=== PATIENT | female | born 1940 | race Caucasian/White ===

== ENCOUNTER 2019-05-22 09:44 | Inpatient (IN) | payer MEDICARE ==
[~2019-05-22] VITALS: Ht 175.3 cm; Wt 96.4 kg
[2019-05-22] VITALS (7 sets, daily range): BP systolic 127–158; BP diastolic 56–69
[2019-05-22] MEDS ORDERED: SODIUM CHLORIDE 0.9% 1000ML 1,000 ML IV STA ×2 (09:46→11:28)
--- OUTSIDE RECORDS SUMMARY | 2019-05-22 09:46 | XMS REPORT ---
Author Author [facility] Address Unknown Phone Unavailable Care Team Providers Care Fondant Machine Operator Name Role Phone BRAYDON NOLAND CHRISTINA Unavailable Unavailable NIK HERRERA Unavailable Unavailable STEPHEN TAVARES Unavailable Unavailable Problems This patient has no known problems. Allergies, Adverse Reactions, Alerts This patient has no known allergies or adverse reactions. Medications This patient has no known medications. Results Test Description Test Time Test Comments Text Results Atomic Results Result Comments AFB CULTURE + SMEAR 2018-01-02 22:21:00 CULTURE (BEAKER) (test yznb=5176) No acid-fast bacilli isolated in 42 days AFB SMEAR (BEAKER) (test ytoe=812) No acid fast bacilli seen CBC W/PLT COUNT & AUTO [id number] 16:54:00* Test Item Value Reference Range Comments WHITE BLOOD CELL COUNT (BEAKER) (test jtzf=935) 52.3 K/ L 3.5-10.5 RED BLOOD CELL COUNT (BEAKER) (test ooft=573) 2.25 M/ L 3.93-5.22 HEMOGLOBIN (BEAKER) (test zhkh=681) 8.0 GM/DL 11.2-15.7 HEMATOCRIT (BEAKER) (test lfgm=444) 26.1 % 34.1-44.9 MEAN CORPUSCULAR VOLUME (BEAKER) (test wwtf=050) 116.0 fL 79.4-94.8 MEAN CORPUSCULAR HEMOGLOBIN (BEAKER) (test axjm=958) 35.6 pg 25.6-32.2 MEAN CORPUSCULAR HEMOGLOBIN CONC (BEAKER) (test hnlz=771) 30.7 GM/DL 32.2-35.5 RED CELL DISTRIBUTION WIDTH (BEAKER) (test htkk=571) 23.8 % 11.7-14.4 PLATELET COUNT (BEAKER) (test nxui=637) 109 K/CU MM 150-450 MEAN PLATELET VOLUME (BEAKER) (test jyni=543) 11.9 fL 9.4-12.3 NUCLEATED RED BLOOD CELLS (BEAKER) (test vgxo=862) 0 /100 WBC 0-0 NEUTROPHILS RELATIVE PERCENT (BEAKER) (test udal=863) 9 % LYMPHOCYTES RELATIVE PERCENT (BEAKER) (test aecy=756) 76 % MONOCYTES RELATIVE PERCENT (BEAKER) (test muyz=447) 15 % EOSINOPHILS RELATIVE PERCENT (BEAKER) (test xhvs=573) 0 % BASOPHILS RELATIVE PERCENT (BEAKER) (test vgmd=450) 0 % NEUTROPHILS ABSOLUTE COUNT (BEAKER) (test lnyh=531) 4.47 K/ L 1.56-6.13 LYMPHOCYTES ABSOLUTE COUNT (BEAKER) (test vtyo=226) 39.74 K/ L 1.18-3.74 MONOCYTES ABSOLUTE COUNT (BEAKER) (test txgx=019) 7.61 K/ L 0.24-0.36 EOSINOPHILS ABSOLUTE COUNT (BEAKER) (test xurg=569) 0.03 K/ L 0.04-0.36 BASOPHILS ABSOLUTE COUNT (BEAKER) (test vlpw=341) 0.13 K/ L 0.01-0.08 IMMATURE GRANULOCYTES-RELATIVE PERCENT (BEAKER) (test cguy=0902) 1 % 0-1 (MANUAL DIFFERENTIAL)2017-12-31 16:54:00* Test Item Value Reference Range Comments NEUTROPHILS - REL (DIFF) (BEAKER) (test zmea=3792) 10 % LYMPHOCYTES - REL (DIFF) (BEAKER) (test nbsq=1966) 80 % MONOCYTES - REL (DIFF) (BEAKER) (test ohto=1952) 9 % METAMYELOCYTES-REL (DIFF) (BEAKER) (test ffsz=498) 1 % 0-0 NEUTROPHILS - ABS (DIFF) (BEAKER) (test flit=3973) 5.23 K/ L 1.80-8.00 LYMPHOCYTES - ABS (DIFF) (BEAKER) (test irqv=4989) 41.84 K/ L 1.48-4.50 MONOCYTES - ABS (DIFF) (BEAKER) (test rzet=5497) 4.71 K/ L 0.00-1.30 METAMYELOCTYES - ABS (DIFF) (BEAKER) (test kfvl=668) 0.52 K/ L 0.00-0.00 TOTAL COUNTED (BEAKER) (test rjug=1611) 100 PLT MORPHOLOGY (BEAKER) (test npau=326) Normal ATYPICAL LYMPHS(BEAKER) (test xafl=8152) Present SMUDGE CELLS (BEAKER) (test gqqc=0880) Present ANISOCYTOSIS (BEAKER) (test bcfq=989) 1+ few MACROCYTES (BEAKER) (test auxh=641) 1+ few POLYCHROMATOPHILLIC RBCS(BEAKER) (test lykp=954) 1+ few FUNGUS CULTURE + [id number] 09:41:00* Test Item Value Reference Range Comments CULTURE (BEAKER) (test itej=0342) No fungus isolated in 28 days FUNGUS SMEAR (BEAKER) (test qacs=9867) No fungi seen BONE MARROW [id number] 16:24:00Bone Marrow Pathology Report Case: [id number] Authorizing Provider: Christina Noland MD Collected: 11/16/2017 0950 Ordering Location: 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 Signing Pathologist Direct Phone Line: [phone] signed by Leonides Kim MD on 11/19/2017 at 3:33 PMMolecular and cytogenetic studies are currently pending and will be issued in an addendum report.[id number]; 97294; 39040 x 2; 12591; 01032, 95637, [id number] clinical history of lymphoma.A. One unstained slide for Ruben's iron stain; B. Bone marrow aspirate, C. Bone marrow biopsy Specimen A: Received in one unstained slide for Ruben's iron stain. Specimen B: Received in formalin labeled "iliac, left" is a 0.8 x 0.6 x 0.3 cm portion of clotted blood The specimen is entirely submitted in cassette B1.Specimen C: In formalin labeled "iliac, left" is a 1.8 cm in length lawler-white core of osseous tissue. The specimen is entirely submitted in cassette C1 for decalcification. DB/pl BONE MARROW ASPIRATE: QUALITY: Aspirate- Suboptimal, hemodilute Touch imprint- AdequateMARROW DIFFERENTIAL COUNT: Number of cells counted:200 3% Blasts 3% Promyelocytes 9% Myelocytes/Metamyelocytes 14% Bands/Segmented granulocytes 0% E osinophils and precursors 0% Basophils and precursors 9% Erythroid precursors 56 % Lymphocytes 3% Monocytes 3% Plasma cells Blasts: Not increased Erythropoies is: UnremarkableMyelopoiesis: UnremarkableLymphocytes: Increased, small and matu reMegakaryocytes: Not readily identified. BONE MARROW BIOPSY: Biopsy- Adequate Clot- Suboptimal, limited marrow.The marrow core demonstrates a cellularity of approximately 80%. Megakaryocytes are present and are essentially unremarkable. A neoplastic B cell population is identified which accounts for approximately 60 % of the marrow cellularity. The cells are small in size. Large cell transformat ion is not identified. This population is positive for CD20, CD5, and CD23. The population is negative for CD3, Cyclin D1, CD34, and TdT. Perls iron special sta in performed on the clot section is suboptimal due to limited marrow material. P ERIPHERAL BLOOD:Red cells: Mild anisopoikilocytosis. White cells: Increased smal l mature lymphocytes, 82% by manual count. Rare larger forms are identified but are not overtly increased. Platelets: Unremarkable.The following special studies were performed on this case and the interpretation is incorporated in the diagn ostic report above:BLOCK B1- PERLS IRONBLOCK C1- CD20, CD5, CD3, CD23, CYCLIN D1 , CD34, TDTThe immunohistochemistry test was developed and its performance sigifredo cteristics determined by [facility], Pathology Laboratory. It has not been cleared or approved by the U.S. Food and Drug Administration. The [facility] has determined that such clearance or approval is not necessary. The test is used for clinical purposes. It should not be regarded as investigational or for research. This laboratory is certified under the Clinical Laboratory Improvement Amendments of 1988 (CLIA-88) as qualified to perform high complexity clinical l aboratory testing.FLOW CYTOMETRY [id number] 11:11:00* Test Item Value Reference Range Comments FLOW CYTOMETRY RESULT POINTER (IVET) (test bxfz=1885) See Separate Report FLOW CYTOMETRY AP CASE # (IVET) (test elih=9853) [id number] BONE MARROW [id number] 14:01:00* Test Item Value Reference Range Comments CULTURE (BEAKER) (test dbnb=5205) No growth GRAM STAIN RESULT (BEAKER) (test cetd=9399) 4+ WBCs GRAM STAIN RESULT (BEAKER) (test vqov=98205) No organisms seen FLOW [id number] 10:29:00Flow Cytometry Report Case: [id number] Authorizing Provider: Christina Noland MD Collected: 11/16/2017 0950 Ordering Location: [facility] Radiology Main Received: 11/16/2017 1048 Pathologist: Leonides Kim MD Specimen: Other BONE MARROW, FLOW CYTOMETRY:MONOCLONAL CD5 POSITIVE KAPPA RESTRICTED B CELL POPULATION (47.8% OF ANALYZED EVENTS).CORRELATION WITH MORPHOLOGIC FINDINGS REQUIRED. 97382Nhxzwrkv history of lymphoma.Bone MarrowCD2, CD3, CD4, CD5, CD7, CD8, CD10, CD11C, CD13, CD14, CD16, CD19, CD20, CD23, CD33, CD34, CD38, CD45, CD56, CD64, CD117, HLA-DR, KAPPA, LAMBDA Specimen Viability: 90.58%Abnormal B cell population identified (47.8% of total cellularity)POSITIVE: CD19, CD20, KAPPA LIGHT CHAIN, CD5, CD23, CD11c (DIM)NEGATIVE: CD10, LAMBDA LIGHT CHAIN, CD34In addition, the following populations are identified:Blasts: the dim CD45+ CD34+ blasts comprise less than 1% of total cells. The majority of these cells express CD13 and CD33 (myeloblasts).Lymphocytes: Bright CD45+ lymphocytes comprise 65.56% of total cells. T cells show a CD4:CD8 ratio of 2.8 and normal kim T cell antigen e xpression. Myeloid/monocytic populations: As identified by CD45 and light scatt er characteristics, granulocytes comprise the majority of cells analyzed, and mo nocytes comprise 2.59% of total cells.The remaining events analyzed represent no nviable cells, non-hematolymphoid cells, and debrisThese tests were developed an d their performance characteristics determined by [facility]. They have not bee n cleared or approved by the U.S. Food and Drug Administration. The FDA has dete rmined that such clearance or approval is not necessary. It should not be regard ed as investigational or for research. This laboratory is certified under the Cl inical Laboratory Improvement Amendments of 1988 ("CLIA") as qualified to perfor m high-complexity clinical testing.CBC W/PLT COUNT & AUTO [id number] 10:37:00* Test Item Value Reference Range Comments WHITE BLOOD CELL COUNT (BEAKER) (test peew=567) 31.0 K/ L 3.5-10.5 RED BLOOD CELL COUNT (BEAKER) (test isgl=126) 2.29 M/ L 3.93-5.22 HEMOGLOBIN (BEAKER) (test hvwf=399) 8.3 GM/DL 11.2-15.7 HEMATOCRIT (BEAKER) (test kzgg=095) 26.5 % 34.1-44.9 MEAN CORPUSCULAR VOLUME (BEAKER) (test gzcb=728) 115.7 fL 79.4-94.8 MEAN CORPUSCULAR HEMOGLOBIN (BEAKER) (test eype=365) 36.2 pg 25.6-32.2 MEAN CORPUSCULAR HEMOGLOBIN CONC (BEAKER) (test dczc=162) 31.3 GM/DL 32.2-35.5 RED CELL DISTRIBUTION WIDTH (BEAKER) (test lysl=021) 20.5 % 11.7-14.4 PLATELET COUNT (BEAKER) (test dnxq=705) 133 K/CU MM 150-450 MEAN PLATELET VOLUME (BEAKER) (test jcow=031) 10.9 fL 9.4-12.3 NUCLEATED RED BLOOD CELLS (BEAKER) (test gwtr=556) 0 /100 WBC 0-0 NEUTROPHILS RELATIVE PERCENT (BEAKER) (test jkbh=437) 10 % LYMPHOCYTES RELATIVE PERCENT (BEAKER) (test wcsm=267) 81 % MONOCYTES RELATIVE PERCENT (BEAKER) (test nxxe=018) 9 % EOSINOPHILS RELATIVE PERCENT (BEAKER) (test fmsq=822) 0 % BASOPHILS RELATIVE PERCENT (BEAKER) (test zggc=317) 0 % NEUTROPHILS ABSOLUTE COUNT (BEAKER) (test wyhr=123) 3.04 K/ L 1.56-6.13 LYMPHOCYTES ABSOLUTE COUNT (BEAKER) (test uuib=008) 24.93 K/ L 1.18-3.74 MONOCYTES ABSOLUTE COUNT (BEAKER) (test smsy=620) 2.81 K/ L 0.24-0.36 EOSINOPHILS ABSOLUTE COUNT (BEAKER) (test rzwc=700) 0.02 K/ L 0.04-0.36 BASOPHILS ABSOLUTE COUNT (BEAKER) (test hdfh=466) 0.04 K/ L 0.01-0.08 IMMATURE GRANULOCYTES-RELATIVE PERCENT (BEAKER) (test hlly=5068) 0 % 0-1 (MANUAL DIFFERENTIAL)2017-11-16 10:37:00* Test Item Value Reference Range Comments TOTAL COUNTED (BEAKER) (test phcj=7451) PLT MORPHOLOGY (BEAKER) (test kipf=675) Normal RBC MORPHOLOGY (BEAKER) (test wmer=948) Normal ATYPICAL LYMPHS(BEAKER) (test cslw=7718) Present SMUDGE CELLS (BEAKER) (test izmy=5836) Present BONE MARROW PROCESS.2017-11-16 10:17:00* Test Item Value Reference Range Comments ANATOMIC CASE# (BEAKER) (test nsho=5626) m18-5 ORDERED BY DOCTOR# (BEAKER) (test udbl=6800) Vu. PERFORMED BY DOCTOR# (BEAKER) (test awzh=0385) Jasmyne CLOT RECEIVED? (BEAKER) (test oknt=4084) Yes BIOPSY RECEIVED? (BEAKER) (test dduv=0629) Yes CULTURE RECEIVED? (BEAKER) (test kulz=2857) Yes FLOW RECEIVED? (BEAKER) (test aoek=0198) Yes CYTOGENICS? (BEAKER) (test assd=1537) Yes MOLECULAR GENETICS? 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 Sedation: Moderate sedation was administered. 2 mg of Versed and 100 mcg of fentanyl IV was used for moderate sedation monitored under my direction. Total intraservice time of sedation was 15 minutes. The patient's vital signs were monitored throughout the procedure and recorded in the patient's medical record by the nurse. Technique: The patient was placed in the prone position in the CT scanner. A safe window to the right iliac bone was localized using CT and CT fluoroscopy. This exam was performed according to our departmental dose optimization program which includes automated exposure control, adjustment of the mA and/or kV according to patient size and/or use of iterative reconstructive technique. After the usual sterile preparation and a pplication of local anesthesia, using a right dorsal percutaneous approach, a 10 cm 12 gauge [place] bone biopsy needle was advanced into the right iliac bone u sing CT guidance. Approximately 10 cc of marrow aspirates were obtained. Subsequ ently, a 2 cm core biopsy sample was obtained. The samples were collected by [facility] for further analysis. Disposition: The patient tolerated the procedur e well, without immediate complications. The patient left CT in stable condition . Impression: 1. Technically successful CT guided bone marrow biopsy Signed: Alen Ingram MDReport Verified Date/Time: 11/16/2017 10:03:54 Reading Location: [address] Ortho Consult Reading Room [id number] 08:19:00* Test Item Value Reference Range Comments PARTIAL THROMBOPLASTIN TIME (BEAKER) (test mlzk=643) 65.6 seconds 22.5-36.0 PROTHROMBIN TIME/[id number] 08:17:00* Test Item Value Reference Range Comments PROTIME (BEAKER) (test vgay=289) 14.6 seconds 11.7-14.7 INR (BEAKER) (test uofk=979) 1.2 <=5.9 RECOMMENDED COUMADIN/WARFARIN INR THERAPY RANGESSTANDARD DOSE: 2.0 - 3.0 Inclu clrake: PROPHYLAXIS for venous thrombosis, systemic embolization; TREATMENT for sajan ous thrombosis and/or pulmonary embolus.HIGH RISK: Target INR is 2.5-3.5 for pat ients with mechanical heart valves.CBC W/PLT COUNT & AUTO [id number] 08:49:00* Test Item Value Reference Range Comments WHITE BLOOD CELL COUNT (BEAKER) (test rhzd=023) 31.5 K/ L 3.5-10.5 RED BLOOD CELL COUNT (BEAKER) (test tpwe=591) 2.16 M/ L 3.93-5.22 HEMOGLOBIN (BEAKER) (test xghi=437) 8.1 GM/DL 11.2-15.7 HEMATOCRIT (BEAKER) (test yxix=883) 25.1 % 34.1-44.9 MEAN CORPUSCULAR VOLUME (BEAKER) (test frhb=900) 116.2 fL 79.4-94.8 MEAN CORPUSCULAR HEMOGLOBIN (BEAKER) (test rwki=307) 37.5 pg 25.6-32.2 MEAN CORPUSCULAR HEMOGLOBIN CONC (BEAKER) (test dugp=194) 32.3 GM/DL 32.2-35.5 RED CELL DISTRIBUTION WIDTH (BEAKER) (test ewut=817) 20.5 % 11.7-14.4 PLATELET COUNT (BEAKER) (test qqia=099) 106 K/CU MM 150-450 MEAN PLATELET VOLUME (BEAKER) (test ttfb=990) 11.2 fL 9.4-12.3 NUCLEATED RED BLOOD CELLS (BEAKER) (test hwwo=354) 0 /100 WBC 0-0 NEUTROPHILS RELATIVE PERCENT (BEAKER) (test drqg=351) 18 % LYMPHOCYTES RELATIVE PERCENT (BEAKER) (test mayk=359) 73 % MONOCYTES RELATIVE PERCENT (BEAKER) (test rmii=029) 8 % EOSINOPHILS RELATIVE PERCENT (BEAKER) (test pgmk=109) 0 % BASOPHILS RELATIVE PERCENT (BEAKER) (test rwww=660) 0 % NEUTROPHILS ABSOLUTE COUNT (BEAKER) (test xatk=937) 5.54 K/ L 1.56-6.13 LYMPHOCYTES ABSOLUTE COUNT (BEAKER) (test zbym=684) 23.13 K/ L 1.18-3.74 MONOCYTES ABSOLUTE COUNT (BEAKER) (test xlur=317) 2.65 K/ L 0.24-0.36 EOSINOPHILS ABSOLUTE COUNT (BEAKER) (test pkge=975) 0.00 K/ L 0.04-0.36 BASOPHILS ABSOLUTE COUNT (BEAKER) (test ldlx=816) 0.05 K/ L 0.01-0.08 IMMATURE GRANULOCYTES-RELATIVE PERCENT (BEAKER) (test drpy=5861) 0 % 0-1 (MANUAL DIFFERENTIAL)2017-11-03 08:49:00* Test Item Value Reference Range Comments TOTAL COUNTED (BEAKER) (test zthl=6699) PLT MORPHOLOGY (BEAKER) (test lnsc=652) Normal ATYPICAL LYMPHS(BEAKER) (test sgnc=4716) Present ANISOCYTOSIS (BEAKER) (test xnji=336) 2+ moderate HYPOCHROMIA (BEAKER) (test hfcm=744) 1+ few MACROCYTES (BEAKER) (test cmnc=982) 2+ moderate MICROCYTES (BEAKER) (test ksoo=308) 1+ few OVALOCYTES (BEAKER) (test rmhe=648) 1+ few POIKILOCYTES (BEAKER) (test zutx=018) 1+ few POLYCHROMATOPHILLIC RBCS(BEAKER) (test draq=559) 1+ few [id number] 23:10:00* Test Item Value Reference Range Comments LIPASE (BEAKER) (test kbwh=178) 22 U/L 8-78 [id number] 23:10:00* Test Item Value Reference Range Comments AMYLASE (BEAKER) (test toze=696) 34 U/L 25-125 Specimen slightly hemolyzed BASIC METABOLIC [id number] 23:10:00* Test Item Value Reference Range Comments SODIUM (BEAKER) (test xxsn=106) 139 meq/L 136-145 POTASSIUM (BEAKER) (test xoaf=310) 4.5 meq/L 3.5-5.1 Specimen slightly hemolyzed CHLORIDE (BEAKER) (test ojfp=128) 104 meq/L 98-107 CO2 (BEAKER) (test fgha=705) 25 meq/L 22-29 BLOOD UREA NITROGEN (BEAKER) (test nbqs=120) 20 mg/dL 7-21 CREATININE (BEAKER) (test esry=219) 0.98 mg/dL 0.57-1.25 Specimen slightly hemolyzed GLUCOSE RANDOM (BEAKER) (test kzrl=630) 113 mg/dL 70-105 CALCIUM (BEAKER) (test hgif=148) 8.8 mg/dL 8.4-10.2 EGFR (BEAKER) (test iwsh=8025) 55 mL/min/1.73 sq m ESTIMATED GFR IS NOT ACCURATE CREATININE CLEARANCE IN PREDICTING GLOMERULAR FILTRATION RATE. ESTIMATED GFR IS NOT APPLICABLE FOR DIALYSIS PATIENTS. HEPATIC FUNCTION [id number] 23:10:00* Test Item Value Reference Range Comments TOTAL PROTEIN (BEAKER) (test luqb=874) 7.1 gm/dL 6.0-8.3 Specimen slightly hemolyzed ALBUMIN (BEAKER) (test vddn=9077) 4.0 g/dL 3.5-5.0 Specimen slightly hemolyzed BILIRUBIN TOTAL (BEAKER) (test mwqz=501) 0.7 mg/dL 0.2-1.2 Specimen slightly hemolyzed BILIRUBIN DIRECT (BEAKER) (test tdkv=960) 0.3 mg/dL 0.1-0.5 Specimen slightly hemolyzed ALKALINE PHOSPHATASE (BEAKER) (test sndc=363) 46 U/L 40-150 AST (SGOT) (BEAKER) (test znmj=190) 20 U/L 5-34 Specimen slightly hemolyzed ALT (SGPT) (BEAKER) (test hnxu=406) 11 U/L 6-55 Specimen slightly hemolyzed PT/[id number] 23:04:00* Test Item Value Reference Range Comments PROTIME (BEAKER) (test omac=516) 18.4 seconds 11.7-14.7 INR (BEAKER) (test zewv=541) 1.5 <=5.9 PARTIAL THROMBOPLASTIN TIME (BEAKER) (test jgvl=372) 51.3 seconds 22.5-36.0 RECOMMENDED COUMADIN/WARFARIN INR THERAPY RANGESSTANDARD DOSE: 2.0 - 3.0 Inclu clarke: PROPHYLAXIS for venous thrombosis, systemic embolization; TREATMENT for sajan ous thrombosis and/or pulmonary embolus.HIGH RISK: Target INR is 2.5-3.5 for pat ients with mechanical heart valves.BLOOD [id number] 23:00:00* Test Item Value Reference Range Comments CULTURE (BEAKER) (test nzct=9324) No growth in 5 days BLOOD [id number] 23:00:00* Test Item Value Reference Range Comments CULTURE (IVET) (test myty=1361) No growth in 5 days [facility], MULTI, PHARM, [id number] 15:25:00FINAL REPORT PROCEDURE: 2-Day Stress/Rest MYOCARDIAL PERFUSION SPECT with regadenoson\\XA9\\ CPT CODE: 29625 INDICATION: Chest pain HISTORY: Cardiac risk factors: Hypertension, tobacco use. Other cardiovascular history: No reported CAD. Recent cardiac symptoms: Chest pain, atrial arrhythmia. Current cardiovascular-related medications: Aspirin, coronary, hydrochlorothiazide, Diovan, Lipitor, losartan. PROTOCOL: 31.2 mCi of Tc- 99m sestamibi was injected iv at expected peak pharmacologic effect, and gated SPECT (tomographic) images were obtained. On a separate day, 31.1 mCi of Tc-99m sestamibi was injected iv at rest, and SPECT images were obtained. PRELIMINARY STRESS TEST DATA FROM NONINVASIVE CARDIOLOGY: Pharmacologic stress was by 10- second iv infusion of 0.4 mg of regadenoson. Radiotracer was injected 30 seconds after start of stress. Heart rate was 71 beats/min at rest and 88 beats/min (61 % of MPHR) at tracer injection. BP was 141/63 mmHg at rest and 135/61 mmHg at t racer injection. Stress was stopped for predetermined endpoint. The patient expe rienced nausea and flushing; treatment was not required. Preliminary ECG evaluat ion revealed sinus rhythm at rest and no ischemic changes with stress. (Final EC G interpretation and other stress and monitoring data are reported separately by Cardiology.) IMAGING FINDINGS: Study quality is good. Images obtained a fter rest and stress injections show normal LV activity. LV and RV volumes appea r normal. Gated images obtained at rest after stress show normal LV wall motion and thickening. QGS LVEF is 61%. IMPRESSION: 1. Normal study. 2. Appropriate pharmacologic stress. 3. Normal myocardial perfusion. 4. Normal resting LV fu nction. 5. Normal extracardiac tracer distribution. 6. No previous [facility] study for comparison. NONINVASIVE RISK STRATIFICATION: The above findings are consi dered low risk (<1% annual mortality rate) based on the following criterion:- Normal at rest or with stress(JACC. 2012;59(9):857-81.) Signed: Luigi Alexander MDReport Verified Date/Time: 09/25/2017 15:25:58 Reading Location: [address] Reading Room TINE KINASE (CK), TOTAL AND [id number] 01:03:00* Test Item Value Reference Range Comments CREATINE KINASE TOTAL (BEAKER) (test qoif=455) 98 U/L 29-200 CREATINE KINASE-MB (BEAKER) (test yvnk=094) 1.5 ng/mL 0.0-6.6 CREATINE KINASE-MB INDEX (BEAKER) (test zioi=497) 1.5 % CK-MB Reference Range:<6.7 Normal6.7-10.0 Borderline>10.0 Abnormal TROPONIN [id number] 01:03:00* Test Item Value Reference Range Comments TROPONIN I (BEAKER) (test rdaf=593) 0.01 ng/mL 0.00-0.03 Troponin I (TnI) levels must be interpreted in the context of the presenting sym ptoms and the clinical findings. Elevated TnI levels indicate myocardial damage, but are not specific for ischemic heart disease. Elevated TnI levels are seen i n patients with other cardiac conditions (including myocarditis and congestive h eart failure), and slight TnI elevations occur in patients with other conditions , including sepsis, renal failure, acidosis, acute neurological disease, and per sistent tachyarrhythmia.CT, CHEST WITH IV CONTRAST- PE TEST [id number] 19:53:00Reason for exam:->SOB/CPFINAL REPORT CT of the chest, with contrast. History: Chest pain, shortness of breath Comparison: 07/26/2017. Technique: Multidetector CT scanning of the chest was performed from the level of the thoracic inlet to the upper abdomen after IV contrast ministration. Thin collimation scanning through the pulmonary arteries was performed during the early phase. Coronal MIP reformations were obtained. DOSE REDUCTION: The examination was performed according to departmental dose- optimization program which includes automated exposure control, adjustment of the mA and/or kV according to patient size and/or use of iterative reconstruction technique. Discussion: There is supraclavicular, hilar, and mediastinal adenopathy compatible with patient's history of CLL. The largest right axillary lymph node measures 2.6 cm in diameter. The largest left axillary lymph node measures 2.5 cm in diameter. The largest supraclavicular ly mph node is in the left supraclavicular fossa and measures 3.3 cm in diameter. T he main pulmonary artery is mildly prominent in size which can be seen in underl andrew pulmonary hypertension. The pulmonary artery branches are well opacified wi thout evidence of filling defect or vessel cutoff. The heart is within normal l imits of size. There is no pericardial effusion. The thoracic aorta is of normal course and caliber. There is mild interstitial prominence which can be seen in edema. There is no focal consolidation, pleural effusion, or pneumothorax. Limit ed evaluation of the upper abdomen demonstrates a small hypoattenuating lesion i n the left lobe of the liver which is most likely a cyst. The spleen is mildly e nlarged measuring 13 cm in greatest axial dimension. IMPRESSION:1. No evidence o f pulmonary embolism.2. 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 Mild interstitial edema.4. Mild splenomegaly splenomegaly Signed: Cristian Bean [facility] ed Date/Time: 09/21/2017 19:53:44 Reading Location: [facility] [id number] [facility] (MANUAL DIFFERENTIAL)2017-09-21 19:08:00* Test Item Value Reference Range Comments NEUTROPHILS - REL (DIFF) (BEAKER) (test dxej=5135) 25 % LYMPHOCYTES - REL (DIFF) (BEAKER) (test cpdh=5025) 68 % MONOCYTES - REL (DIFF) (BEAKER) (test dbey=4799) 5 % BANDS - REL (DIFF) (BEAKER) (test dfzi=6277) 2 % 0-10 NEUTROPHILS - ABS (DIFF) (BEAKER) (test dcpt=0175) 7.00 K/ L 1.80-8.00 LYMPHOCYTES - ABS (DIFF) (BEAKER) (test jojk=0981) 19.04 K/ L 1.48-4.50 MONOCYTES - ABS (DIFF) (BEAKER) (test wwzy=7312) 1.40 K/ L 0.00-1.30 BANDS-ABS (DIFF) (BEAKER) (test ddgc=9951) 0.6 K/ L 0.0-0.8 TOTAL COUNTED (BEAKER) (test cltg=7368) 100 BANDS + SEGMENTED NEUTROPHILS (BEAKER) (test oszx=7528) 7.56 WBC MORPHOLOGY (BEAKER) (test tmzx=905) Normal PLT MORPHOLOGY (BEAKER) (test tffg=143) Normal RBC MORPHOLOGY (BEAKER) (test zyvb=993) Normal CBC W/PLT COUNT & AUTO [id number] 17:55:00* Test Item Value Reference Range Comments WHITE BLOOD CELL COUNT (BEAKER) (test bfyx=536) 28.0 K/ L 3.5-10.5 RED BLOOD CELL COUNT (BEAKER) (test gdke=498) 2.45 M/ L 3.93-5.22 HEMOGLOBIN (BEAKER) (test eqbj=513) 9.0 GM/DL 11.2-15.7 HEMATOCRIT (BEAKER) (test ryip=269) 28.1 % 34.1-44.9 MEAN CORPUSCULAR VOLUME (BEAKER) (test cntk=210) 114.7 fL 79.4-94.8 MEAN CORPUSCULAR HEMOGLOBIN (BEAKER) (test pcuy=163) 36.7 pg 25.6-32.2 MEAN CORPUSCULAR HEMOGLOBIN CONC (BEAKER) (test dkbu=055) 32.0 GM/DL 32.2-35.5 RED CELL DISTRIBUTION WIDTH (BEAKER) (test jtmt=982) 17.3 % 11.7-14.4 PLATELET COUNT (BEAKER) (test dnsx=913) 118 K/CU MM 150-450 MEAN PLATELET VOLUME (BEAKER) (test wkid=727) 11.3 fL 9.4-12.3 NUCLEATED RED BLOOD CELLS (BEAKER) (test lbbq=078) 0 /100 WBC 0-0 IMMATURE GRANULOCYTES-RELATIVE PERCENT (BEAKER) (test xvoz=5025) 1 % 0-1 RAD, CHEST, 2 [id number] 17:18:00Reason for exam:->CHEST PAINReason for exam:->SHORTNESS OF BREATHFINAL REPORT Chest, PA and lateral. History: Chest pain, shortness of breath. Comparison: 07/28/2017. Discussion: The cardiomediastinal silhouette and pulmonary vasculature are within normal limits. The lungs are clear without evidence of consolidation or effusion. There are no acute osseous abnormalities. The soft tissues are unremarkable. IMPRESSION: No acute cardiopulmonary abnormality. Signed: Cristian Bean MDReport Verified Date/Time: 09/21/2017 17:18:44 Reading Location: [address] Consult Reading Room C METABOLIC [id number] 17:09:00* Test Item Value Reference Range Comments SODIUM (BEAKER) (test hych=133) 140 meq/L 136-145 POTASSIUM (BEAKER) (test lzue=552) 3.9 meq/L 3.5-5.1 CHLORIDE (BEAKER) (test umuw=582) 106 meq/L 98-107 CO2 (BEAKER) (test ryjh=462) 25 meq/L 22-29 BLOOD UREA NITROGEN (BEAKER) (test jhzt=768) 17 mg/dL 7-21 CREATININE (BEAKER) (test snet=256) 0.84 mg/dL 0.57-1.25 GLUCOSE RANDOM (BEAKER) (test uqai=268) 109 mg/dL 70-105 CALCIUM (BEAKER) (test pves=830) 9.0 mg/dL 8.4-10.2 EGFR (BEAKER) (test sesv=9342) mL/min/1.73 sq m INSUFFICIENT CLINICAL DATA TO CALCULATE ESTIMATED GFR. [id number] 17:05:00* Test Item Value Reference Range Comments MAGNESIUM (BEAKER) (test vjsy=138) 1.9 mg/dL 1.6-2.6 CREATINE KINASE (CK), TOTAL AND [id number] 17:05:00* Test Item Value Reference Range Comments CREATINE KINASE TOTAL (BEAKER) (test qljn=917) 103 U/L 29-200 CREATINE KINASE-MB (BEAKER) (test mqwc=787) 1.6 ng/mL 0.0-6.6 CREATINE KINASE-MB INDEX (BEAKER) (test usnf=939) 1.6 % CK-MB Reference Range:<6.7 Normal6.7-10.0 Borderline>10.0 AbnormalB- TYPE NATRIURETIC FACTOR (BNP)2017-09-21 17:04:00* Test Item Value Reference Range Comments B-TYPE NATRIURETIC PEPTIDE (BEAKER) (test tllq=295) 96 pg/mL 0-100 TROPONIN [id number] 17:04:00* Test Item Value Reference Range Comments TROPONIN I (BEAKER) (test aeqx=538) < ng/mL 0.00-0.03 Troponin I (TnI) levels must be interpreted in the context of the presenting sym ptoms and the clinical findings. Elevated TnI levels indicate myocardial damage, but are not specific for ischemic heart disease. Elevated TnI levels are seen i n patients with other cardiac conditions (including myocarditis and congestive h eart failure), and slight TnI elevations occur in patients with other conditions , including sepsis, renal failure, acidosis, acute neurological disease, and per sistent tachyarrhythmia.[id number] 16:48:00* Test Item Value Reference Range Comments D-DIMER QUANTITATIVE (BEAKER) (test ghra=160) 0.39 MG/L FEU <0.50 Intended Use: The D-Dimer Assay can be used to aid in the diagnosis of Deep Vein Thrombosis (DVT) and Pulmonary Embolism Disease (PED).In patients with low pre- test probability, various studies concerning STA Liatest D-dimer test have repor rachel that with a cutoff value of 0.50 MG/L FEU, the Negative Predictive Value ([employer]SI[employer]ATE SECRETARY V) regarding the exclusion of thrombosis is within 95-100% range.PT/APTT 2017-09-21 16:39:00* Test Item Value Reference Range Comments PROTIME (BEAKER) (test oggx=238) 14.9 seconds 11.7-14.7 INR (BEAKER) (test sbyw=635) 1.2 <=5.9 PARTIAL THROMBOPLASTIN TIME (BEAKER) (test miln=811) 54.5 seconds 22.5-36.0 RECOMMENDED COUMADIN/WARFARIN INR THERAPY RANGESSTANDARD DOSE: 2.0 - 3.0 Inclu clarke: PROPHYLAXIS for venous thrombosis, systemic embolization; TREATMENT for sajan ous thrombosis and/or pulmonary embolus.HIGH RISK: Target INR is 2.5-3.5 for pat ients with mechanical heart valves.
--- OUTSIDE RECORDS SUMMARY | 2019-05-22 09:46 | XMS REPORT | Clinical Summary ---
Author Author JAZLYN eucl3DSt. [facility]5151tuanProsser Memorial Hospital Organization [facility] CampusRTB-MediaProsser [facility] Hospital Address Unknown Phone Unavailable Care Team Providers Care Insulation Foreman Name Role Phone Regina Lee MD PCP Unavailable Allergies Comments Active Allergy Reactions Severity Noted Date Daniel Inhibitors 09/21/2017 Iodine And Iodide Anaphylaxis High 09/21/2017 Containing Products Magnesium Sulfate 09/21/2017 Morphine 09/21/2017 Oxycodone 09/21/2017 Medications End Date Status Medication Sig Dispensed Refills Start Date Active amLODIPine (NORVASC) 5 MG Take 5 mg by 0 tablet mouth daily. Active aspirin 81 MG EC tablet Take 81 mg by 0 mouth daily. Active amLODIPine (NORVASC) 5 MG TAKE 1 TABLET 0 tablet BY MOUTH 7 DAILY Status Hospital, Clinic, or Ordered Dose Route Frequency Start End Date Other Facility Date Administered Medication Discontinued acetaminophen (TYLENOL) 650 mg Oral Once 03/14/20 tablet 650 mg 18 9 Ended sodium chloride 0.9% (NS) IV Once 06/05/20 infusion 18 8 Ended heparin (PF) injection 500 Units Cath Once as needed 06/05/20 syringe 500 Units 18 8 Ended diphenhydrAMINE 25 mg Oral Once 06/05/20 (BENADRYL) capsule 25 mg 18 8 Ended acetaminophen (TYLENOL) 650 mg Oral Once 06/05/20 tablet 650 mg 18 8 Ended sodium chloride 0.9% (NS) IV Once 06/13/20 infusion 18 8 Ended diphenhydrAMINE 25 mg Oral Once 06/13/20 (BENADRYL) capsule 25 mg 18 8 Ended acetaminophen (TYLENOL) 650 mg Oral Once 06/13/20 tablet 650 mg 18 8 Ended heparin (PF) injection 500 Units Cath Once as needed 06/13/20 syringe 500 Units 18 8 Ended sodium chloride 0.9% (NS) IV Once 07/04/20 infusion 18 8 Ended heparin (PF) injection 500 Units Cath Once as needed 07/04/20 syringe 500 Units 18 8 Ended diphenhydrAMINE 25 mg Oral Once 07/04/20 (BENADRYL) capsule 25 mg 18 8 Ended acetaminophen (TYLENOL) 650 mg Oral Once 07/04/20 tablet 650 mg 18 8 Ended sodium chloride 0.9% (NS) IV Once 07/11/20 infusion 18 8 Ended diphenhydrAMINE 25 mg Oral Once 07/11/20 (BENADRYL) capsule 25 mg 18 8 Ended acetaminophen (TYLENOL) 650 mg Oral Once 07/11/20 tablet 650 mg 18 8 Ended heparin (PF) injection 500 Units Cath Once as needed 07/11/20 syringe 500 Units 18 8 Ended sodium chloride 0.9% (NS) IV Once 08/14/20 infusion 18 8 Ended diphenhydrAMINE 25 mg Oral Once 08/14/20 (BENADRYL) capsule 25 mg 18 8 Ended acetaminophen (TYLENOL) 650 mg Oral Once 08/14/20 tablet 650 mg 18 8 Ended heparin (PF) injection 500 Units Cath Once as needed 08/14/20 syringe 500 Units 18 8 Ended acetaminophen (TYLENOL) 650 mg Oral Once 09/11/20 tablet 650 mg 18 8 Ended diphenhydrAMINE 25 mg Oral Once 09/11/20 (BENADRYL) capsule 25 mg 18 8 Ended heparin (PF) injection 500 Units IV Once as needed 09/11/20 syringe 500 Units 18 8 Ended sodium chloride 0.9% (NS) IV Once 09/11/20 infusion 18 8 Ended sodium chloride 0.9% (NS) IV Once 10/03/20 infusion 18 8 Ended diphenhydrAMINE 25 mg Oral Once 10/03/20 (BENADRYL) capsule 25 mg 18 8 Ended acetaminophen (TYLENOL) 650 mg Oral Once 10/03/20 tablet 650 mg 18 8 Ended sodium chloride 0.9% (NS) IV Once 11/01/20 infusion 18 8 Ended diphenhydrAMINE 25 mg Oral Once 11/01/20 (BENADRYL) capsule 25 mg 18 8 Ended acetaminophen (TYLENOL) 650 mg Oral Once 11/01/20 tablet 650 mg 18 8 Ended sodium chloride 0.9% (NS) IV Once 11/21/19 infusion 19 9 Discontinued acetaminophen (TYLENOL) 650 mg Oral Every 6 hours PRN 11/21/19 tablet 650 mg 19 9 Ended diphenhydrAMINE 25 mg Oral Once 11/21/19 (BENADRYL) capsule 25 mg 19 9 Ended acetaminophen (TYLENOL) 650 mg Oral Once 11/21/19 tablet 650 mg 19 9 Discontinued acetaminophen (TYLENOL) 650 mg Oral Once 11/21/19 tablet 650 mg 19 9 Active Problems Problem Noted Date Symptomatic anemia 12/31/2017 Chest pain, unspecified type 09/21/2017 Encounters Care Team Description Date Type Specialty Feli Pierre MD Marcus, Shannon, RN Symptomatic anemia (Primary Dx) 11/21/2018 Procedure visit Oncology Feli Pierre MD Sud, Rachel L, RN Symptomatic anemia (Primary Dx) 11/20/2018 Procedure visit Oncology Feli Pierre MD Marcus, Shannon, RN Symptomatic anemia (Primary Dx) 11/01/2018 Procedure visit Oncology Feli Pierre MD Alexander, L R, RN Symptomatic anemia (Primary Dx) 10/31/2018 Procedure visit Oncology Feli Pierre MD Alexander, L R RN Anemia, unspecified type (Primary Dx) 10/03/2018 Procedure visit Oncology Feli Pierre MD Marcus, Shannon, RN Symptomatic anemia (Primary Dx) 10/02/2018 Procedure visit Oncology Feli Pierre MD Alexander, L R, RN Symptomatic anemia (Primary Dx) 09/11/2018 Procedure visit Oncology Feli Pierre MD Marcus, Shannon, RN Symptomatic anemia (Primary Dx) 09/10/2018 Procedure visit Oncology Feli Pierre MD Sud, Rachel L, RN Symptomatic anemia (Primary Dx) 08/14/2018 Procedure visit Oncology Feli Pierre MD Sud, Rachel L RN Symptomatic anemia (Primary Dx) 08/13/2018 Procedure visit Oncology Feli Pierre MD Marcus, Shannon, RN Symptomatic anemia (Primary Dx) 07/11/2018 Procedure visit Oncology Feli Pierre MD Sud, Rachel L RN Symptomatic anemia (Primary Dx) 07/10/2018 Procedure visit Oncology Feli Pierre MD Alexander, L R, RN Symptomatic anemia (Primary Dx) 07/04/2018 Procedure visit Oncology Feli Pierre MD Sud, Rachel L, RN Symptomatic anemia (Primary Dx) 07/03/2018 Procedure visit Oncology Feli Pierre MD Alexander, L R, RN Symptomatic anemia (Primary Dx) 06/13/2018 Procedure visit Oncology Feli Pierre MD Alexander, L R, RN Symptomatic anemia (Primary Dx) 06/05/2018 Procedure visit Oncology Feli Pierre MD Alexander, L R, RN Symptomatic anemia (Primary Dx) 06/04/2018 Procedure visit Oncology after 05/21/2018 Social History Date Tobacco Use Types Packs/Day Years Used Former Smoker Smokeless Tobacco: Never Used Tobacco Cessation: Counseling Given: No Comments: over 50 years ago Alcohol Use Drinks/Week oz/Week Comments No Sex Assigned at Date Recorded Not on file Industry Job Start Date Occupation Not on file Not on file Not on file Travel End Travel History Travel Start No recent travel history available. Last Filed Vital Signs Time Taken Vital Sign Reading 11/21/2018 12:53 PM [employer] Blood Pressure 137/61 11/21/2018 12:53 PM [employer] Pulse 82 11/21/2018 12:53 PM [employer] Temperature 36.9 C (98.5 F) 11/21/2018 12:53 PM [employer] Respiratory Rate 16 11/21/2018 12:53 PM [employer] Oxygen Saturation 98% - Inhaled Oxygen - Concentration 07/11/2018 9:14 AM CDT Weight 94.5 kg (208 lb 6.4 oz) - Height - 07/11/2018 9:14 AM CDT Body Mass Index 30.78 Plan of Treatment Not on file Procedures Comments Procedure Name Priority Date/Time Associated Diagnosis TRANSFUSE LEUKO-REDUCED Routine 12/12/2018 Symptomatic anemia RED BLOOD CELLS 5:34 PM [employer] TRANSFUSE LEUKO-REDUCED Routine 12/12/2018 Symptomatic anemia RED BLOOD CELLS 5:34 PM [employer] TRANSFUSE LEUKO-REDUCED Routine 12/12/2018 Anemia, unspecified type RED BLOOD CELLS 5:33 PM [employer] TRANSFUSE LEUKO-REDUCED Routine 12/12/2018 Symptomatic anemia RED BLOOD CELLS 5:33 PM [employer] TRANSFUSE LEUKO-REDUCED Routine 12/12/2018 Symptomatic anemia RED BLOOD CELLS 5:33 PM [employer] TRANSFUSE LEUKO-REDUCED Routine 12/12/2018 Symptomatic anemia RED BLOOD CELLS 5:33 PM [employer] TRANSFUSE LEUKO-REDUCED Routine 12/12/2018 Symptomatic anemia RED BLOOD CELLS 5:33 PM [employer] TRANSFUSE LEUKO-REDUCED Routine 12/12/2018 Symptomatic anemia RED BLOOD CELLS 5:32 PM [employer] TRANSFUSE LEUKO-REDUCED Routine 12/12/2018 Symptomatic anemia RED BLOOD CELLS 5:32 PM [employer] TRANSFUSE LEUKO-REDUCED Routine 12/12/2018 Symptomatic anemia RED BLOOD CELLS 5:32 PM [employer] TRANSFUSE LEUKO-REDUCED Routine 12/12/2018 Symptomatic anemia RED BLOOD CELLS 5:32 PM [employer] TRANSFUSE LEUKO-REDUCED Routine 12/12/2018 Symptomatic anemia RED BLOOD CELLS 5:31 PM [employer] TRANSFUSE LEUKO-REDUCED Routine 12/12/2018 Symptomatic anemia RED BLOOD CELLS 5:31 PM [employer] TRANSFUSE LEUKO-REDUCED Routine 12/12/2018 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) Anemia of chronic renal failure, unspecified CKD stage Anemia, unspecified type TRANSFUSE LEUKO-REDUCED Routine 12/12/2018 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) Anemia of chronic renal failure, unspecified CKD stage Anemia, unspecified type TRANSFUSE LEUKO-REDUCED Routine 12/12/2018 Symptomatic anemia RED BLOOD CELLS 5:31 PM [employer] TRANSFUSE LEUKO-REDUCED Routine 12/12/2018 Symptomatic anemia RED BLOOD CELLS 5:31 PM [employer] TRANSFUSE LEUKO-REDUCED Routine 12/12/2018 Symptomatic anemia RED BLOOD CELLS 5:30 PM [employer] TRANSFUSE LEUKO-REDUCED Routine 12/12/2018 Symptomatic anemia RED BLOOD CELLS 5:30 PM [employer] TRANSFUSE LEUKO-REDUCED Routine 12/12/2018 Symptomatic anemia RED BLOOD CELLS 5:30 PM [employer] TRANSFUSE LEUKO-REDUCED Routine 12/12/2018 Symptomatic anemia RED BLOOD CELLS 5:30 PM [employer] TRANSFUSE LEUKO-REDUCED Routine 12/12/2018 Anemia, unspecified type AND IRRADIATED RED BLOOD 5:30 PM [employer] CELLS TRANSFUSE LEUKO-REDUCED Routine 12/12/2018 Anemia, unspecified type AND IRRADIATED RED BLOOD 5:30 PM [employer] CELLS TRANSFUSE LEUKO-REDUCED Routine 12/12/2018 Anemia, unspecified type RED BLOOD CELLS 5:29 PM [employer] TRANSFUSE LEUKO-REDUCED Routine 12/12/2018 Anemia, unspecified type RED BLOOD CELLS 5:29 PM [employer] TRANSFUSE LEUKO-REDUCED Routine 12/12/2018 Symptomatic anemia RED BLOOD CELLS 5:28 PM [employer] TRANSFUSE LEUKO-REDUCED Routine 12/12/2018 Symptomatic anemia RED BLOOD CELLS 5:28 PM [employer] TRANSFUSE LEUKO-REDUCED Routine 12/12/2018 Symptomatic anemia RED BLOOD CELLS 5:28 PM [employer] TRANSFUSE LEUKO-REDUCED Routine 12/12/2018 Symptomatic anemia RED BLOOD CELLS 5:27 PM [employer] TRANSFUSE LEUKO-REDUCED Routine 12/12/2018 Symptomatic anemia RED BLOOD CELLS 5:27 PM [employer] TRANSFUSE LEUKO-REDUCED Routine 12/12/2018 Symptomatic anemia AND IRRADIATED RED BLOOD 5:25 PM [employer] CELLS TRANSFUSION SERVICE 11/23/2018 REPORT - SCAN 5:53 PM [employer] PREPARE LEUKO-REDUCED RBC Routine 11/22/2018 Symptomatic anemia 11:54 PM [employer] TRANSFUSION SERVICE 11/21/2018 REPORT - SCAN 6:03 PM [employer] TRANSFUSION SERVICE 11/21/2018 REPORT - SCAN 6:03 PM [employer] TYPE AND SCREEN, Routine 11/20/2018 Symptomatic anemia AUTOMATED 1:19 PM [employer] TRANSFUSION SERVICE 11/03/2018 REPORT - SCAN 6:02 PM [employer] PREPARE LEUKO-REDUCED RBC Routine 11/02/2018 Symptomatic anemia 11:54 PM [employer] TRANSFUSION SERVICE 11/01/2018 REPORT - SCAN 6:04 PM [employer] TRANSFUSION SERVICE 11/01/2018 REPORT - SCAN 6:04 PM [employer] TRANSFUSE LEUKO-REDUCED Routine 11/01/2018 Symptomatic anemia RED BLOOD CELLS 4:15 PM [employer] TYPE AND SCREEN, Routine 10/31/2018 Symptomatic anemia AUTOMATED 1:27 PM [employer] TRANSFUSION SERVICE 10/05/2018 REPORT - SCAN 6:03 PM [employer] PREPARE LEUKO-REDUCED RBC Routine 10/04/2018 Anemia, unspecified type 11:54 PM [employer] TRANSFUSION SERVICE 10/03/2018 REPORT - SCAN 6:04 PM [employer] TRANSFUSION SERVICE 10/03/2018 REPORT - SCAN 6:04 PM [employer] TYPE AND SCREEN, Routine 10/02/2018 Symptomatic anemia AUTOMATED 3:37 PM [employer] TRANSFUSION SERVICE 09/13/2018 REPORT - SCAN 5:53 PM [employer] PREPARE LEUKO-REDUCED RBC Routine 09/12/2018 Symptomatic anemia 11:54 PM [employer] TRANSFUSION SERVICE 09/11/2018 REPORT - SCAN 6:04 PM [employer] TRANSFUSION SERVICE 09/11/2018 REPORT - SCAN 6:04 PM [employer] TYPE AND SCREEN, Routine 09/10/2018 Symptomatic anemia AUTOMATED 1:16 PM [employer] TRANSFUSION SERVICE 08/16/2018 REPORT - SCAN 5:43 PM CDT PREPARE LEUKO-REDUCED RBC Routine 08/15/2018 Symptomatic anemia 11:54 PM CDT TRANSFUSION SERVICE 08/14/2018 REPORT - SCAN 6:03 PM CDT TRANSFUSION SERVICE 08/14/2018 REPORT - SCAN 6:03 PM CDT TYPE AND SCREEN, Routine 08/13/2018 AUTOMATED 10:54 AM CDT TRANSFUSION SERVICE 07/13/2018 REPORT - SCAN 5:53 PM CDT PREPARE LEUKO-REDUCED RBC Routine 07/12/2018 Symptomatic anemia 11:54 PM CDT TRANSFUSION SERVICE 07/11/2018 REPORT - SCAN 6:16 PM CDT TRANSFUSION SERVICE 07/11/2018 REPORT - SCAN 6:16 PM CDT TYPE AND SCREEN, Routine 07/10/2018 AUTOMATED 1:28 PM CDT TRANSFUSION SERVICE 07/06/2018 REPORT - SCAN 6:03 PM CDT PREPARE LEUKO-REDUCED RBC Routine 07/05/2018 Symptomatic anemia 11:54 PM CDT TRANSFUSION SERVICE 07/04/2018 REPORT - SCAN 6:04 PM CDT TRANSFUSION SERVICE 07/04/2018 REPORT - SCAN 6:04 PM CDT TYPE AND SCREEN, Routine 07/03/2018 AUTOMATED 1:49 PM CDT TRANSFUSION SERVICE 06/15/2018 REPORT - SCAN 6:03 PM CDT PREPARE LEUKO-REDUCED RBC Routine 06/14/2018 Symptomatic anemia 11:54 PM CDT TRANSFUSION SERVICE 06/14/2018 REPORT - SCAN 6:03 PM CDT TYPE AND SCREEN, STAT 06/13/2018 AUTOMATED 8:37 AM CDT TRANSFUSION SERVICE 06/07/2018 REPORT - SCAN 6:03 PM CDT PREPARE LEUKO-REDUCED RBC Routine 06/06/2018 Symptomatic anemia 11:54 PM CDT TRANSFUSION SERVICE 06/05/2018 REPORT - SCAN 5:53 PM CDT TRANSFUSION SERVICE 06/05/2018 REPORT - SCAN 5:53 PM CDT TYPE AND SCREEN, Routine 06/04/2018 AUTOMATED 2:19 PM CDT after 05/21/2018 Results * Transfuse Leuko-Red RBC (12/12/2018 5:34 PM [employer]) Only the most recent of 41 results within the time period is included. * Transfuse Leuko-Red & Irrad RBC (12/12/2018 5:30 PM [employer]) Only the most recent of 4 results within the time period is included. * TRANSFUSION SERVICE REPORT - SCAN (11/23/2018 5:53 PM [employer]) Only the most recent of 26 results within the time period is included. Narrative Performed At * Prepare Leuko-Red RBC (11/22/2018 11:54 PM [employer]) Only the most recent of 9 results within the time period is included. CROSSMATCH COMPATIBLE SAFETRACE TX Unit ABO A Pos SAFETRACE TX UNIT NUMBER [id number] [facility] [place] Status TRANSFUSED [facility] [place] Blood Bank Product RED BLOOD CELLS SAF[place]ACE [place] PRODUCT CODE [id number] SAFETRACE [place] Specimen Other Performing Organization Address City/State/Zipcode Phone Number [place]AF[place] * Type and screen, automated (For the [facility] Lab Only) (11/20/2018 1:19 PM [employer]) Only the most recent of 9 results within the time period is included. ABO/RH AUTOMATED (BEAKER) A POSITIVE [facility] Ab Scrn NEGATIVE [facility] Specimen Blood Performing Organization Address City/State/Zipcode Phone Number [facility] [address] [place] [address] [facility] after 05/21/2018 Insurance Payer Benefit Subscriber ID Type Phone Address Plan / Group [employer] K[employer] xxxxxxxxxxx MEDICARE ADV Advance Directives For more information, please contact: [facility] [address] [place], [place] [phone] Date Inactivated Comments Code Status Date Activated 09/26/2017 9:19 AM Full Code 09/21/2017 11:32 PM This code status was determined by: Patient
[2019-05-22] MEDS ORDERED: FAMOTIDINE 20 MG/2 ML VIAL IV ONE (10:00)
--- NOTE | 2019-05-22 10:39 | Diagnostic Imaging Report ---
EXAMINATION: CHEST SINGLE (PORTABLE) INDICATION: Chest pain COMPARISON: None FINDINGS: TUBES and LINES: None. LUNGS: The lung volumes are normal. No focal consolidation or pulmonary edema. A 1 cm density overlying the right lower lung likely represents a calcified granuloma. PLEURA: No pleural effusion or pneumothorax. HEART AND MEDIASTINUM: The cardiomediastinal silhouette is normal in size and contour. BONES AND SOFT TISSUES: No acute fracture or dislocation. UPPER ABDOMEN: No free air under the diaphragm. IMPRESSION: No cardiomegaly. No focal pneumonia or pulmonary edema. 1 cm nodular opacity overlying the right lower lung zone likely a calcified granuloma. Signed by: Anika Morel MD on 05/22/2019 10:36 AM
[2019-05-22 10:42] LABS: BASOPHILS % 0.1 % (0.0-1.0); EOSINOPHILS % 0.1 % (0.0-6.0); HEMATOCRIT 34.3 % (34.2-44.1); HEMOGLOBIN 10.9 g/dL (12.0-16.0); LYMPHOCYTES # (AUTO) 2.9 (1.0-3.2); LYMPHOCYTES % 29.3 % (18.0-39.1); MEAN CORPUSCULAR HEMOGLOBIN 32.3 pg (28-32); MEAN CORPUSCULAR HGB CONC 31.8 g/dL (31-35); MEAN CORPUSCULAR VOLUME 101.8 fL (81-99); MONOCYTES # (AUTO) 0.6 (0.2-0.8); MONOCYTES % 5.6 % (4.4-11.3); NEUTROPHILS # (AUTO) 6.3 (2.1-6.9); NEUTROPHILS % 64.1 % (38.7-80.0); RED BLOOD COUNT 3.37 x10e6/uL (3.6-5.1); RED CELL DISTRIBUTION WIDTH 15.7 % (11.7-14.4)
[2019-05-22] MEDS: ONDANSETRON HCL INJ 2MG/ML 2ML 2 MG/ML VIAL IV PRN ×2 (10:47→19:35)
[2019-05-22 10:52] LABS: BILIRUBIN,URINE NEGATIVE (NEGATIVE); CLARITY,URINE TURBID (CLEAR); COLOR,URINE YELLOW (YELLOW); KETONES,URINE NEGATIVE (NEGATIVE); LEUKOCYTE ESTERASE ,URINE MODERATE (NEGATIVE); NITRITE,URINE NEGATIVE (NEGATIVE); PROTEIN,URINE DIPSTICK 1+ (NEGATIVE); URINE UROBILINOGEN 0.2 mg/dL (0.2 - 1)
[2019-05-22 11:01] LABS: ALANINE AMINOTRANSFERASE 21 IU/L (0-55); ALBUMIN 3.2 g/dL (3.5-5.0); ALBUMIN/GLOBULIN RATIO 0.9 (0.8-2.0); ALKALINE PHOSPHATASE 40 IU/L (40-150); ANION GAP 15.5 mmol/L (8-16); BLOOD UREA NITROGEN 22 mg/dL (7-26); BUN/CREATININE RATIO 22 (6-25); CARBON DIOXIDE 24 mmol/L (22-29); CHLORIDE 97 mmol/L (98-107); CREATINE KINASE 97 IU/L (29-168); EST GLOMERULAR FILTRATION RATE 53 ML/MIN (60-); GLUCOSE 121 mg/dL (74-118); POTASSIUM 3.5 mmol/L (3.5-5.1); SODIUM 133 mmol/L (136-145)
[2019-05-22 11:06] LABS: AMORPHOUS SEDIMENT,URINE FEW (FEW); BACTERIA,URINE MODERATE /HPF; EPITHELIAL CELLS,URINE RARE /LPF; RBC,URINE >50 /HPF (0-5)
[2019-05-22 11:12] LABS: PLATELET COUNT 47 x10e3/uL (140-360)
[2019-05-22 11:25] LABS: CREATINE KINASE MB < 1.00 ng/mL (0-4.3)
[2019-05-22] MEDS ORDERED: ONDANSETRON HCL INJ 2MG/ML 2ML 2 MG/ML VIAL IV PRN (11:30)
[2019-05-22] MEDS ORDERED: CEFTRIAXONE SOD 1 GRAM/0.9% SOD CHL 50ML BAG IV SCH (11:30)
[2019-05-22] MEDS ORDERED: LACTULOSE SYRUP 20 GM/30 ML UDC PO PRN (11:30)
[2019-05-22] MEDS ORDERED: DIPHENHYDRAMINE HCL INJ 50 MG/ML VIAL IV PRN (11:30)
[2019-05-22] MEDS ORDERED: MORPHINE SULFATE INJ 4 MG/ML INJ 1ML IV PRN (11:30)
[2019-05-22] MEDS ORDERED: ZOLPIDEM TARTRATE 5 MG TAB PO PRN (11:30)
[2019-05-22] MEDS ORDERED: CALQUENCE PO (11:47)
[2019-05-22] MEDS ORDERED: ACETAMINOPHEN325 M1 PO (11:48)
[2019-05-22] MEDS ORDERED: AMLODIPINE BESYL5 MG PO (11:48)
[2019-05-22] MEDS ORDERED: ACUVAIL 0.45%1 EACH OD (11:49)
[2019-05-22] MEDS ORDERED: VIGAMOX3 ML OD (11:50)
[2019-05-22] MEDS ORDERED: ZOFRAN8 MG PO (11:51)
[2019-05-22] MEDS ORDERED: PRED MILD5 ML OD (11:52)
--- OUTSIDE RECORDS SUMMARY | 2019-05-22 11:55 | XMS REPORT | Clinical Summary ---
Author Author JAZLYN DiditzBoundary [facility] HospitalCoinPassNorthern [facility] Hospital Organization [facility] Address Unknown Phone Unavailable Care Team Providers Care Flush Tester Name Role Phone Regina Lee MD PCP [...] Taken Vital Sign Reading 11/21/2018 12:53 PM AUTOMOBILE SPRING REPAIRER Blood Pressure 137/61 11/21/2018 12:53 PM AUTOMOBILE SPRING REPAIRER Pulse 82 11/21/2018 12:53 PM AUTOMOBILE SPRING REPAIRER Temperature 36.9 C (98.5 F) 11/21/2018 12:53 PM AUTOMOBILE SPRING REPAIRER Respiratory Rate 16 11/21/2018 12:53 PM AUTOMOBILE SPRING REPAIRER Oxygen Saturation 98% - Inhaled Oxygen - Concentration 07/11/2018 9:14 AM CDT Weight 94.5 kg (208 lb 6.4 oz) - Height - 07/11/2018 9:14 AM CDT Body Mass Index 30.78 Plan of Treatment Not on file Procedures Comments Procedure Name Priority Date/Time Associated Diagnosis TRANSFUSE LEUKO-REDUCED Routine 12/12/2018 Symptomatic anemia RED BLOOD CELLS 5:34 PM AUTOMOBILE SPRING REPAIRER TRANSFUSE LEUKO-REDUCED Routine 12/12/2018 Symptomatic anemia RED BLOOD CELLS 5:34 PM AUTOMOBILE SPRING REPAIRER TRANSFUSE LEUKO-REDUCED Routine 12/12/2018 Anemia, unspecified type RED BLOOD CELLS 5:33 PM AUTOMOBILE SPRING REPAIRER TRANSFUSE LEUKO-REDUCED Routine 12/12/2018 Symptomatic anemia RED BLOOD CELLS 5:33 PM AUTOMOBILE SPRING REPAIRER TRANSFUSE LEUKO-REDUCED Routine 12/12/2018 Symptomatic anemia RED BLOOD CELLS 5:33 PM AUTOMOBILE SPRING REPAIRER TRANSFUSE LEUKO-REDUCED Routine 12/12/2018 Symptomatic anemia RED BLOOD CELLS 5:33 PM AUTOMOBILE SPRING REPAIRER TRANSFUSE LEUKO-REDUCED Routine 12/12/2018 Symptomatic anemia RED BLOOD CELLS 5:33 PM AUTOMOBILE SPRING REPAIRER TRANSFUSE LEUKO-REDUCED Routine 12/12/2018 Symptomatic anemia RED BLOOD CELLS 5:32 PM AUTOMOBILE SPRING REPAIRER TRANSFUSE LEUKO-REDUCED Routine 12/12/2018 Symptomatic anemia RED BLOOD CELLS 5:32 PM AUTOMOBILE SPRING REPAIRER TRANSFUSE LEUKO-REDUCED Routine 12/12/2018 Symptomatic anemia RED BLOOD CELLS 5:32 PM AUTOMOBILE SPRING REPAIRER TRANSFUSE LEUKO-REDUCED Routine 12/12/2018 Symptomatic anemia RED BLOOD CELLS 5:32 PM AUTOMOBILE SPRING REPAIRER TRANSFUSE LEUKO-REDUCED Routine 12/12/2018 Symptomatic anemia RED BLOOD CELLS 5:31 PM AUTOMOBILE SPRING REPAIRER TRANSFUSE LEUKO-REDUCED Routine 12/12/2018 Symptomatic anemia RED BLOOD CELLS 5:31 PM AUTOMOBILE SPRING REPAIRER TRANSFUSE LEUKO-REDUCED Routine 12/12/2018 Chronic lymphocytic RED BLOOD CELLS 5:31 PM AUTOMOBILE SPRING REPAIRER 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 (HCC) Anemia of chronic renal failure, unspecified CKD stage Anemia, unspecified type TRANSFUSE LEUKO-REDUCED Routine 12/12/2018 Chronic lymphocytic RED BLOOD CELLS 5:31 PM AUTOMOBILE SPRING REPAIRER 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 (HCC) Anemia of chronic renal failure, unspecified CKD stage Anemia, unspecified type TRANSFUSE LEUKO-REDUCED Routine 12/12/2018 Symptomatic anemia RED BLOOD CELLS 5:31 PM AUTOMOBILE SPRING REPAIRER TRANSFUSE LEUKO-REDUCED Routine 12/12/2018 Symptomatic anemia RED BLOOD CELLS 5:31 PM AUTOMOBILE SPRING REPAIRER TRANSFUSE LEUKO-REDUCED Routine 12/12/2018 Symptomatic anemia RED BLOOD CELLS 5:30 PM AUTOMOBILE SPRING REPAIRER TRANSFUSE LEUKO-REDUCED Routine 12/12/2018 Symptomatic anemia RED BLOOD CELLS 5:30 PM AUTOMOBILE SPRING REPAIRER TRANSFUSE LEUKO-REDUCED Routine 12/12/2018 Symptomatic anemia RED BLOOD CELLS 5:30 PM AUTOMOBILE SPRING REPAIRER TRANSFUSE LEUKO-REDUCED Routine 12/12/2018 Symptomatic anemia RED BLOOD CELLS 5:30 PM AUTOMOBILE SPRING REPAIRER TRANSFUSE LEUKO-REDUCED Routine 12/12/2018 Anemia, unspecified type AND IRRADIATED RED BLOOD 5:30 PM AUTOMOBILE SPRING REPAIRER CELLS TRANSFUSE LEUKO-REDUCED Routine 12/12/2018 Anemia, unspecified type AND IRRADIATED RED BLOOD 5:30 PM AUTOMOBILE SPRING REPAIRER CELLS TRANSFUSE LEUKO-REDUCED Routine 12/12/2018 Anemia, unspecified type RED BLOOD CELLS 5:29 PM AUTOMOBILE SPRING REPAIRER TRANSFUSE LEUKO-REDUCED Routine 12/12/2018 Anemia, unspecified type RED BLOOD CELLS 5:29 PM AUTOMOBILE SPRING REPAIRER TRANSFUSE LEUKO-REDUCED Routine 12/12/2018 Symptomatic anemia RED BLOOD CELLS 5:28 PM AUTOMOBILE SPRING REPAIRER TRANSFUSE LEUKO-REDUCED Routine 12/12/2018 Symptomatic anemia RED BLOOD CELLS 5:28 PM AUTOMOBILE SPRING REPAIRER TRANSFUSE LEUKO-REDUCED Routine 12/12/2018 Symptomatic anemia RED BLOOD CELLS 5:28 PM AUTOMOBILE SPRING REPAIRER TRANSFUSE LEUKO-REDUCED Routine 12/12/2018 Symptomatic anemia RED BLOOD CELLS 5:27 PM AUTOMOBILE SPRING REPAIRER TRANSFUSE LEUKO-REDUCED Routine 12/12/2018 Symptomatic anemia RED BLOOD CELLS 5:27 PM AUTOMOBILE SPRING REPAIRER TRANSFUSE LEUKO-REDUCED Routine 12/12/2018 Symptomatic anemia AND IRRADIATED RED BLOOD 5:25 PM AUTOMOBILE SPRING REPAIRER CELLS TRANSFUSION SERVICE 11/23/2018 REPORT - SCAN 5:53 PM AUTOMOBILE SPRING REPAIRER PREPARE LEUKO-REDUCED RBC Routine 11/22/2018 Symptomatic anemia 11:54 PM AUTOMOBILE SPRING REPAIRER TRANSFUSION SERVICE 11/21/2018 REPORT - SCAN 6:03 PM AUTOMOBILE SPRING REPAIRER TRANSFUSION SERVICE 11/21/2018 REPORT - SCAN 6:03 PM AUTOMOBILE SPRING REPAIRER TYPE AND SCREEN, Routine 11/20/2018 Symptomatic anemia AUTOMATED 1:19 PM AUTOMOBILE SPRING REPAIRER TRANSFUSION SERVICE 11/03/2018 REPORT - SCAN 6:02 PM AUTOMOBILE SPRING REPAIRER PREPARE LEUKO-REDUCED RBC Routine 11/02/2018 Symptomatic anemia 11:54 PM AUTOMOBILE SPRING REPAIRER TRANSFUSION SERVICE 11/01/2018 REPORT - SCAN 6:04 PM AUTOMOBILE SPRING REPAIRER TRANSFUSION SERVICE 11/01/2018 REPORT - SCAN 6:04 PM AUTOMOBILE SPRING REPAIRER TRANSFUSE LEUKO-REDUCED Routine 11/01/2018 Symptomatic anemia RED BLOOD CELLS 4:15 PM AUTOMOBILE SPRING REPAIRER TYPE AND SCREEN, Routine 10/31/2018 Symptomatic anemia AUTOMATED 1:27 PM AUTOMOBILE SPRING REPAIRER TRANSFUSION SERVICE 10/05/2018 REPORT - SCAN 6:03 PM AUTOMOBILE SPRING REPAIRER PREPARE LEUKO-REDUCED RBC Routine 10/04/2018 Anemia, unspecified type 11:54 PM AUTOMOBILE SPRING REPAIRER TRANSFUSION SERVICE 10/03/2018 REPORT - SCAN 6:04 PM AUTOMOBILE SPRING REPAIRER TRANSFUSION SERVICE 10/03/2018 REPORT - SCAN 6:04 PM AUTOMOBILE SPRING REPAIRER TYPE AND SCREEN, Routine 10/02/2018 Symptomatic anemia AUTOMATED 3:37 PM AUTOMOBILE SPRING REPAIRER TRANSFUSION SERVICE 09/13/2018 REPORT - SCAN 5:53 PM AUTOMOBILE SPRING REPAIRER PREPARE LEUKO-REDUCED RBC Routine 09/12/2018 Symptomatic anemia 11:54 PM AUTOMOBILE SPRING REPAIRER TRANSFUSION SERVICE 09/11/2018 REPORT - SCAN 6:04 PM AUTOMOBILE SPRING REPAIRER TRANSFUSION SERVICE 09/11/2018 REPORT - SCAN 6:04 PM AUTOMOBILE SPRING REPAIRER TYPE AND SCREEN, Routine 09/10/2018 Symptomatic anemia AUTOMATED 1:16 PM AUTOMOBILE SPRING REPAIRER TRANSFUSION SERVICE 08/16/2018 REPORT - SCAN 5:43 [...] * Transfuse Leuko-Red RBC (12/12/2018 5:34 PM AUTOMOBILE SPRING REPAIRER) Only the most recent of 41 results within the time period is included. * Transfuse Leuko-Red & Irrad RBC (12/12/2018 5:30 PM AUTOMOBILE SPRING REPAIRER) Only the most recent of 4 results within the time period is included. * TRANSFUSION SERVICE REPORT - SCAN (11/23/2018 5:53 PM AUTOMOBILE SPRING REPAIRER) Only the most recent of 26 results within the time period is included. Narrative Performed At * Prepare Leuko-Red RBC (11/22/2018 11:54 PM AUTOMOBILE SPRING REPAIRER) Only the most recent of 9 results within the time period is included. CROSSMATCH COMPATIBLE [facility] [place] Unit ABO A Pos [place] [place] UNIT NUMBER [id number] [place] [place] Status TRANSFUSED [facility] [place] Blood Bank Product RED BLOOD CELLS [place] PRODUCT CODE [id number] [place] Specimen Other Performing Organization Address City/State/Zipcode Phone Number [place] * Type and screen, automated (For the [facility] Lab Only) (11/20/2018 1:19 PM AUTOMOBILE SPRING REPAIRER) Only the most recent of 9 results within the time period is included. ABO/RH AUTOMATED (BEAKER) A POSITIVE [facility] Ab Scrn NEGATIVE [facility] [place] Specimen Blood Performing Organization Address City/State/Zipcode Phone Number [facility] [address] [place] [address] MEDICAL CENTER after 05/21/2018 Insurance Payer Benefit Subscriber ID Type Phone Address Plan / Group [employer] K[employer] xxxxxxxxxxx MEDICARE ADV Advance Directives For more information, please contact: [facility] [address] [place], [place] [phone] Date Inactivated Comments Code Status Date Activated 09/26/2017 9:19 AM Full Code 09/21/2017 11:32 PM This code status was determined by: Patient
[2019-05-22] MEDS: CEFTRIAXONE SOD 1 GM/NS 50 ML 50 ML IV SCH (12:18)
--- NOTE | 2019-05-22 13:14 | NUR ---
RCD PT FROM ER BY BED PT IS ALERT AND ORIENTED PT RESTING ON BED NO SIGNS OF ANY DISTRESS NOTED VITALS CHECKED TEM 103.[address] GERBER ,ADMISSION ASSESSMENT AND HISTORY DONE ,IV PATENT BY SALINE FLUSH ,FAMILY AT BED SIDE INSTRUCTED PT AND FAMILY REGARDING HOSPITAL POLICY AND ROUTINE BED LLOW AND LOCKED CALL LIGHT IN REACH
[2019-05-22] MEDS: ACETAMINOPHEN 325 MG TAB PO PRN ×2 (13:25→19:35)
[2019-05-22] MEDS: LACTOBACILLUS ACIDOPHILUS CAPSULE PO SCH (16:36)
[2019-05-22] MEDS: OSELTAMIVIR PHOSPHATE 75 MG CAP PO SCH (16:36)
[2019-05-22] MEDS ORDERED: FAMOTIDINE 20 MG/2 ML VIAL IV SCH (17:00)
--- NOTE | 2019-05-22 18:49 | NUR ---
PT RESTING ON BED BED SIDE REPORT GIVEN TO ONCOMING NURSE
--- NOTE | 2019-05-22 20:08 | NUR ---
PATIENT HAS A TEMPERATURE OF 101.7, CHILLS NOTED. PATIENT GIVEN TYLENOL AND ICE PACKS FOR COOL DOWN, FAMILY MEMBER PRESENT. CALL LIGHT WITHIN REACH, WILL CONTINUE TO MONITOR.
[2019-05-22 20:23] LABS: LYMPHOCYTES % (MANUAL) 27 % (19-48); MONOCYTES % (MANUAL) 6 % (3.4-9.0); NEUTROPHILS % (MANUAL) 67 % (40-74)
[2019-05-22 20:25] LABS: HYPOCHROMASIA SLIGHT; PLATELET ESTIMATE MODERATELY DECREASED; PLATELET MORPHOLOGY COMMENT NORMAL; RBC MORPHOLOGY COMMENT NORMAL
--- NOTE | 2019-05-22 21:00 | NUR ---
PATIENT'S TEMPERATURE IS AT 101.2, NO CHILLS OR SWEATING NOTED. PATIENT VOICED THAT SHE FELT A LITTLE BETTER AND DOES NOT HAVE THE CHILLS ANYMORE. ICE PACKS SUPPLIED FOR COOL DOWN, CALL LIGHT WITHIN REACH, WILL CONTINUE TO MONITOR.
--- NOTE | 2019-05-22 22:51 | NUR ---
PATIENT RESTING IN BED, NO CHILLS OR SWEATS NOTED. FAMILY MEMBER AT BEDSIDE, PATIENT VOICED THAT SHE FELT A LOT BETTER. BED IS LOCKED AND LOW, CALL LIGHT WITHIN REACH, WILL CONTINUE TO MONITOR.
[2019-05-23] VITALS (8 sets, daily range): BP systolic 126–145; BP diastolic 61–69
--- NOTE | 2019-05-23 00:41 | NUR ---
PATIENTS TEMPERATURE IS DOWN TO 99.2, NO CHILLS OR SWEATING NOTED. PATIENT RESTING IN BED, BOTH EYES CLOSED, NO DISTRESS NOTED. CALL LIGHT WITHIN REACH, WILL CONTINUE TO MONITOR.
[2019-05-23] MEDS: ACETAMINOPHEN 325 MG TAB PO PRN ×2 (03:59→14:06)
[2019-05-23 05:27] LABS: BASOPHILS % 0.2 % (0.0-1.0); EOSINOPHILS # (AUTO) 0.1 (0.0-0.4); HEMATOCRIT 29.2 % (34.2-44.1); HEMOGLOBIN 9.3 g/dL (12.0-16.0); LYMPHOCYTES # (AUTO) 1.5 (1.0-3.2); LYMPHOCYTES % 24.8 % (18.0-39.1); MEAN CORPUSCULAR HEMOGLOBIN 32.4 pg (28-32); MEAN CORPUSCULAR HGB CONC 31.8 g/dL (31-35); MEAN CORPUSCULAR VOLUME 101.7 fL (81-99); MONOCYTES # (AUTO) 0.7 (0.2-0.8); MONOCYTES % 11.6 % (4.4-11.3); NEUTROPHILS # (AUTO) 3.6 (2.1-6.9); NEUTROPHILS % 60.5 % (38.7-80.0); RED BLOOD COUNT 2.87 x10e6/uL (3.6-5.1); RED CELL DISTRIBUTION WIDTH 15.9 % (11.7-14.4)
[2019-05-23 05:29] LABS: PLATELET COUNT 42 x10e3/uL (140-360)
[2019-05-23 05:47] LABS: ANION GAP 12.8 mmol/L (8-16); BLOOD UREA NITROGEN 15 mg/dL (7-26); BUN/CREATININE RATIO 20 (6-25); CALCIUM 8.5 mg/dL (8.4-10.2); CARBON DIOXIDE 24 mmol/L (22-29); CHLORIDE 102 mmol/L (98-107); CREATININE, SERUM 0.74 mg/dL (0.57-1.11); EST GLOMERULAR FILTRATION RATE > 60 ML/MIN (60-); GLUCOSE 119 mg/dL (74-118); POTASSIUM 3.8 mmol/L (3.5-5.1); SODIUM 135 mmol/L (136-145)
--- NOTE | 2019-05-23 05:49 | NUR ---
CALLED DR. GERBER TO UPDATE HIM IN REGARDS TO THE PATIENT'S CRITICAL PLATELET LAB VALUE.
--- NOTE | 2019-05-23 07:00 | NUR ---
BEDSIDE SHIFT REPORT FROM NIGHT RN. PT DENIES FURTHER NEEDS AT THIS TIME.
[2019-05-23 07:16] LABS: ANISOCYTOSIS SLIGHT; LYMPHOCYTES % (MANUAL) 37 % (19-48); MONOCYTES % (MANUAL) 3 % (3.4-9.0); NEUTROPHILS % (MANUAL) 59 % (40-74); PLATELET ESTIMATE MARKEDLY DECREASED; RBC MORPHOLOGY COMMENT ABNORMAL
[2019-05-23 07:17] LABS: PLATELET MORPHOLOGY COMMENT FEW LARGE
[2019-05-23] MEDS: LACTOBACILLUS ACIDOPHILUS CAPSULE PO SCH ×2 (08:42→17:52)
[2019-05-23] MEDS: OSELTAMIVIR PHOSPHATE 75 MG CAP PO SCH ×2 (08:43→17:52)
[2019-05-23] MEDS: CEFTRIAXONE SOD 1 GM/NS 50 ML 50 ML IV SCH (13:01)
--- NOTE | 2019-05-23 16:52 | NUR ---
DISCUSSED IN ROUNDS PT TO GET IV, PT EVAL AND PENDING URINE AND BLOOD CULTURE, PROJECTED DISCHARGE IS TOMORROW
[2019-05-23] MEDS: SIMETHICONE 80 MG CHEW PO SCH ×2 (17:54→21:10)
[2019-05-23] MEDS: ONDANSETRON HCL INJ 2MG/ML 2ML 2 MG/ML VIAL IV PRN (21:20)
[2019-05-24] VITALS (7 sets, daily range): BP systolic 143–149; BP diastolic 62–74
[2019-05-24] MEDS: ACETAMINOPHEN 325 MG TAB PO PRN ×3 (03:42→17:20)
[2019-05-24 05:11] LABS: BASOPHILS % 0.2 % (0.0-1.0); EOSINOPHILS # (AUTO) 0.1 (0.0-0.4); EOSINOPHILS % 1.7 % (0.0-6.0); HEMATOCRIT 29.6 % (34.2-44.1); HEMOGLOBIN 9.1 g/dL (12.0-16.0); LYMPHOCYTES # (AUTO) 2.5 (1.0-3.2); LYMPHOCYTES % 42.9 % (18.0-39.1); MEAN CORPUSCULAR HEMOGLOBIN 31.7 pg (28-32); MEAN CORPUSCULAR HGB CONC 30.7 g/dL (31-35); MEAN CORPUSCULAR VOLUME 103.1 fL (81-99); MONOCYTES # (AUTO) 0.5 (0.2-0.8); MONOCYTES % 7.8 % (4.4-11.3); NEUTROPHILS # (AUTO) 2.7 (2.1-6.9); NEUTROPHILS % 46.7 % (38.7-80.0); PLATELET COUNT 50 x10e3/uL (140-360); RED BLOOD COUNT 2.87 x10e6/uL (3.6-5.1); RED CELL DISTRIBUTION WIDTH 15.7 % (11.7-14.4)
[2019-05-24 06:31] LABS: LYMPHOCYTES % (MANUAL) 41 % (19-48); MONOCYTES % (MANUAL) 6 % (3.4-9.0); NEUTROPHILS % (MANUAL) 53 % (40-74)
[2019-05-24 06:53] LABS: PLATELET ESTIMATE MODERATELY DECREASED; PLATELET MORPHOLOGY COMMENT NORMAL
[2019-05-24 06:54] LABS: RBC MORPHOLOGY COMMENT ABNORMAL
[2019-05-24] MEDS: OSELTAMIVIR PHOSPHATE 75 MG CAP PO SCH ×2 (10:37→17:20)
[2019-05-24] MEDS: LACTOBACILLUS ACIDOPHILUS CAPSULE PO SCH ×2 (10:37→17:20)
[2019-05-24] MEDS: SIMETHICONE 80 MG CHEW PO SCH ×4 (10:37→22:39)
[2019-05-24] MEDS: CEFTRIAXONE SOD 1 GM/NS 50 ML 50 ML IV SCH (12:53)
[2019-05-24] MEDS ORDERED: SODIUM CHLORIDE 0.9% 500ML 500 ML IV ONE (15:00)
[2019-05-24] MEDS: ONDANSETRON HCL INJ 2MG/ML 2ML 2 MG/ML VIAL IV PRN (18:49)
--- NOTE | 2019-05-24 19:15 | NUR ---
Handoff report to oncoming nurse, patient in bed alert and oriented running ivf per orders x 1 dose.
[2019-05-25] VITALS (8 sets, daily range): BP systolic 132–158; BP diastolic 58–75
[2019-05-25] MEDS: ACETAMINOPHEN 325 MG TAB PO PRN ×3 (00:25→15:54)
[2019-05-25] MEDS ORDERED: SODIUM CHLORIDE 0.9% 250ML 250 ML ONE (09:01)
[2019-05-25] MEDS: LACTOBACILLUS ACIDOPHILUS CAPSULE PO SCH ×2 (09:20→15:53)
[2019-05-25] MEDS: CEFAZOLIN SOD 1 GM/NS 50ML 50 ML IV SCH ×3 (09:20→21:05)
[2019-05-25] MEDS: SIMETHICONE 80 MG CHEW PO SCH ×4 (09:20→21:04)
[2019-05-25] MEDS: OSELTAMIVIR PHOSPHATE 75 MG CAP PO SCH ×2 (09:28→15:54)
--- NOTE | 2019-05-25 10:00 | NUR ---
aware of 05/25/19 temp
[2019-05-25] MEDS: SODIUM CHLORIDE 0.9% 1000ML 1,000 ML IV SCH ×2 (10:20→21:04)
--- NOTE | 2019-05-25 10:56 | Diagnostic Imaging Report ---
EXAM: Abdomen 2 Views INDICATION: ^NAUSEA ^[id number] ^1030 COMPARISON: None FINDINGS: Lines/tubes: None. Minimal amount of stool in the colon. No dilated loops of small bowel. No renal calculi. No abnormal soft tissue masses. Moderate degenerative changes in the lumbar spine and pelvis. Right upper quadrant cholecystectomy clips. IMPRESSION: 1. Signed by: Dr. Meeta Araiza M.D. on 05/25/2019 10:53 AM
--- NOTE | 2019-05-25 10:56 | Diagnostic Imaging Report ---
EXAMINATION: CHEST SINGLE (PORTABLE) INDICATION: ^COUGH ^[id number] ^1030 COMPARISON: None FINDINGS: AP view TUBES and LINES: None. LUNGS: Lungs are well inflated. Lungs are clear. There is no evidence of pneumonia or pulmonary edema. PLEURA: No pleural effusion or pneumothorax. HEART AND MEDIASTINUM: The cardiomediastinal silhouette is unremarkable.. BONES AND SOFT TISSUES: No acute osseous lesion. Soft tissues are unremarkable. UPPER ABDOMEN: No free air under the diaphragm. IMPRESSION: No acute thoracic abnormality. Signed by: Dr. Meeta Araiza M.D. on 05/25/2019 10:53 AM
[2019-05-25] MEDS: ONDANSETRON HCL INJ 2MG/ML 2ML 2 MG/ML VIAL IV PRN (11:59)
--- NOTE | 2019-05-25 13:27 | History and Physical ---
REASON FOR CONSULTATION: The patient has UTI, E coli, influenza, recommendations antibiotic. HISTORY OF PRESENT ILLNESS: This patient is a very pleasant 79-year-old white female with history of CLL. She has been having feeling ill for 4-5 days, started Sunday, fever, chills, body aches, not feeling well in general. The patient went to see her physician in [facility], told him to go to emergency room. In the emergency room, she was evaluated and admitted. She is started on IV antibiotic, however, she says she is still not feeling well. When she first came, she was diagnosed with UTI with E coli, which was pretty much pansensitive. Also her test for Tamiflu came back positive for flu, influenza B came back positive. The patient stated that she is not feeling better. She is still having body aches. PAST MEDICAL HISTORY: As above. PAST SURGICAL HISTORY: As above. ALLERGIES: NKA. SOCIAL HISTORY: There is no smoking, drug abuse, or alcohol abuse. FAMILY HISTORY: Negative. REVIEW OF SYSTEMS: GENERAL: At present time, just stating not feeling well. HEENT: There is no headache, visual changes, or hearing changes. GI: There is no nausea, no vomiting, no diarrhea. CARDIAC: There is no arrhythmia. NEURO: No seizure activity. SKIN: There are no other rashes. LABORATORY DATA: Sodium 133, potassium 3.5, creatinine 1. Liver enzymes within normal limits. White count 9.77, hemoglobin 10.9, platelets 247. MEDICATIONS: She is on Tamiflu, cefazolin. IMAGING DATA: Chest x-ray showed no acute abnormality. PHYSICAL EXAMINATION: GENERAL: The patient is running fever. VITAL SIGNS: Temperature 101.6, heart rate of 102, respirations 19. HEENT: She is not icteric. NECK: Supple. CHEST: Clear. HEART: S1, S2. No S3, S4, or murmur. ABDOMEN: Soft. Bowel sounds present. No tenderness. EXTREMITIES: No edema. SKIN: No rash. IMPRESSION AND PLAN: Fever and chills in a patient who has urinary tract infection, but treated appropriately. Tamiflu also treated appropriately. Chest x-ray is negative. She does have history of chronic lymphocytic leukemia, which may be explain her lack of response, but I am going to get a CAT scan of the abdomen and pelvis to rule out any other pathology like throat abscess, etc. Agree with IV fluid. We will follow. MD WILBERT Santizo/BARRY /[id number]
--- NOTE | 2019-05-25 15:55 | Diagnostic Imaging Report ---
EXAM: CT Abdomen and Pelvis WITHOUT contrast INDICATION: ^r/o infection ^[id number] ^1420 COMPARISON: KUB 05/25/2019 TECHNIQUE: Abdomen and pelvis were scanned utilizing a multidetector helical scanner from the lung base to the pubic symphysis without administration of IV contrast. Absence of intravenous contrast decreases sensitivity for detection of focal lesions and vascular pathology. Coronal and sagittal reformations were obtained. Routine protocol was performed. No IV contrast was administered due to severe iodine allergy. IV CONTRAST: None. ORAL CONTRAST: Water RADIATION DOSE: Total DLP: 678.2 mGy*cm Estimated effective dose: (DLP x 0.015 x size factor) mSv COMPLICATIONS: None FINDINGS: LINES and TUBES: None. LOWER THORAX: Subsegmental atelectasis in the left lower lobe. The left atrium is enlarged. Coronary artery calcifications. HEPATOBILIARY: No focal hepatic lesions. No biliary ductal dilation. GALLBLADDER: Cholecystectomy. SPLEEN: No splenomegaly. PANCREAS: No focal masses or ductal dilatation. ADRENALS: No adrenal nodules KIDNEYS/URETERS: The left collecting system in the left kidney with associated severe hydronephrosis of the inferior pole of the left kidney. The inferior left ureter is normal in caliber and appears to be severe scarring at the ureteropelvic junction. The superior ureter is no well visualized but appears normal in size. There is a 5 mm calcified stone in the inferior pole of the left kidney on series 2, image 47. There is moderate amount of perinephric fluid and fat stranding. The right kidney is normal in density without hydronephrosis and containing few nonobstructing calcified stones, at least 2 measuring up to 4 mm. No calcified stones in the right ureter. GI TRACT: No abnormal distention, wall thickening, or evidence of bowel obstruction. Extensive diverticulosis of the sigmoid and descending colon. There is fat stranding surrounding the descending colon in the left lower quadrant on series 2, image 51 which appears to be more related to the inflammation of the kidney rather than diverticulitis. Appendix is not visualized. PELVIC ORGANS/BLADDER: The urinary bladder is partially collapsed. The uterus is not visualized. LYMPH NODES: No lymphadenopathy. VESSELS: Unremarkable. PERITONEUM / RETROPERITONEUM: No free air or fluid. BONES: Severe degenerative change at L4-L5. SOFT TISSUES: Unremarkable. IMPRESSION: 1. 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 The left ureter is normal in size. Moderate amount of left perinephric fat stranding and fluid collection may relate to infection. Recommend urology consultation. 2. Right kidney is normal in size and density and contains few nonobstructing calcified stones. 3. Extensive diverticulosis throughout the descending and sigmoid colon. Mild fat stranding surrounding the descending colon likely related to inflammation of the kidney rather than diverticulitis. If urinalysis is negative and no suspected nephritis, then, this may represent a focal area of diverticulitis. Signed by: Dr. Meeta Araiza M.D. on 05/25/2019 3:52 PM
--- NOTE | 2019-05-25 16:18 | NUR ---
aware of CT abdomen results and of T100.7. Aware PRN tylenol given. No new orders
--- NOTE | 2019-05-25 19:15 | NUR ---
Report given to oncoming nurse of patient's status. Resting in bed, side rails upx2, call light within reach. Resting with eyes closed. Respirations even and unlabored.
--- NOTE | 2019-05-25 21:55 | NUR ---
SPOKE TO DR DUFF ABOUT CONSULTATION. AWARE OF AB CT RESULT. ORDER RECEIVED TO KEEP NPO
[2019-05-26] VITALS (8 sets, daily range): BP systolic 144–186; BP diastolic 70–82
[2019-05-26] MEDS: ACETAMINOPHEN 325 MG TAB PO PRN (02:50)
[2019-05-26] MEDS: CEFAZOLIN SOD 1 GM/NS 50ML 50 ML IV SCH ×3 (05:27→21:00)
[2019-05-26] MEDS: SODIUM CHLORIDE 0.9% 1000ML 1,000 ML IV SCH ×2 (05:27→16:37)
[2019-05-26 05:35] LABS: BASOPHILS % 0.1 % (0.0-1.0); EOSINOPHILS % 0.4 % (0.0-6.0); HEMATOCRIT 28.5 % (34.2-44.1); HEMOGLOBIN 8.8 g/dL (12.0-16.0); LYMPHOCYTES # (AUTO) 2.9 (1.0-3.2); LYMPHOCYTES % 39.8 % (18.0-39.1); MEAN CORPUSCULAR HEMOGLOBIN 32.1 pg (28-32); MEAN CORPUSCULAR HGB CONC 30.9 g/dL (31-35); MONOCYTES # (AUTO) 0.5 (0.2-0.8); NEUTROPHILS # (AUTO) 3.8 (2.1-6.9); NEUTROPHILS % 51.6 % (38.7-80.0); PLATELET COUNT 68 x10e3/uL (140-360); RED BLOOD COUNT 2.74 x10e6/uL (3.6-5.1); RED CELL DISTRIBUTION WIDTH 15.9 % (11.7-14.4)
[2019-05-26 05:53] LABS: ALANINE AMINOTRANSFERASE 52 IU/L (0-55); ALBUMIN 2.7 g/dL (3.5-5.0); ALKALINE PHOSPHATASE 40 IU/L (40-150); ANION GAP 13.3 mmol/L (8-16); BILIRUBIN,DIRECT 0.4 mg/dL (0.0-0.5); BLOOD UREA NITROGEN 7 mg/dL (7-26); BUN/CREATININE RATIO 10 (6-25); CALCIUM 8.5 mg/dL (8.4-10.2); CARBON DIOXIDE 26 mmol/L (22-29); CHLORIDE 106 mmol/L (98-107); CREATININE, SERUM 0.67 mg/dL (0.57-1.11); EST GLOMERULAR FILTRATION RATE > 60 ML/MIN (60-); GLUCOSE 126 mg/dL (74-118); LIPASE 28 U/L (8-78); MAGNESIUM 1.9 MG/DL (1.3-2.1); POTASSIUM 3.3 mmol/L (3.5-5.1); SODIUM 142 mmol/L (136-145)
[2019-05-26 06:05] LABS: INR 1.13; PROTHROMBIN TIME 15.1 seconds (11.9-14.5)
[2019-05-26 06:06] LABS: PARTIAL THROMBOPLASTIN TIME 51.6 seconds (23.8-35.5)
[2019-05-26] MEDS: SIMETHICONE 80 MG CHEW PO SCH ×4 (08:10→20:59)
[2019-05-26] MEDS: OSELTAMIVIR PHOSPHATE 75 MG CAP PO SCH ×2 (08:10→16:37)
[2019-05-26] MEDS: LACTOBACILLUS ACIDOPHILUS CAPSULE PO SCH ×2 (08:10→16:37)
--- NOTE | 2019-05-26 08:11 | NUR ---
aware of K3.3 . No new orders
[2019-05-26] MEDS ORDERED: IOPAMIDOL 610MG/1ML 300 MG/ML VIAL IV ONE ×2 (08:27→09:25)
--- NOTE | 2019-05-26 08:35 | NUR ---
Taken for procedure. No s/s of acute distress noted.
[2019-05-26] MEDS ORDERED: FENTANYL CITRATE/PF 100MCG/2 ML INJ ONE ×2 (10:16→17:56)
[2019-05-26] MEDS ORDERED: ONDANSETRON HCL INJ 2MG/ML 2ML 2 MG/ML VIAL ONE ×2 (10:16→17:56)
[2019-05-26] MEDS ORDERED: METOCLOPRAMIDE HCL 10 MG/2ML VIAL ONE (10:31)
[2019-05-26] MEDS ORDERED: HYDROMORPHONE 2MG/ML 2 MG/ML ML ONE (10:31)
[2019-05-26] MEDS ORDERED: PROMETHAZINE HCL (IM) 25 MG/ML VIAL ONE (10:41)
--- NOTE | 2019-05-26 10:58 | NUR ---
Back from procedure. AAOX3 to time, person, place. Respirations even and unlabored. O2 2L NC. Patient voided. Bloody tinged urine noted.
--- NOTE | 2019-05-26 11:00 | Consultation ---
DATE OF CONSULTATION: REASON FOR CONSULTATION: Obstructing stone, UTI. HISTORY: This is a 79-year-old female who presents to the hospital with nausea, weakness, myalgia of 3 to 4 days duration with inability to maintain food. The patient by history has had kidney stones before. Approximately 10 years ago, she states that she had a similar attack, had a stone on the left kidney and had a stent put in. Apparently, the patient states that her stone was pushed up into the kidney and has never passed it. I doubt very much that happened 10 years ago and the same stone is causing a problem now. 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 She had not had a stone prior to that and has not had a stone until now causing problems although she has two stones on the right kidney that are approximately 3 to 4 mm and not causing any problems at the present time. PAST MEDICAL HISTORY: The patient has lymphoma, lupus anticoagulant disorder, kidney stones, and psoriasis. PAST SURGICAL HISTORY: Bilateral knee, bilateral cataracts, hysterectomy, appendectomy, and cholecystectomy. SOCIAL HISTORY: She does not smoke. Does not drink. She is for the 2nd time, had four children, all transvaginal without any problems. ALLERGIES: SHE HAS ALLERGY TO MULTIPLE MEDICATIONS, ONE OF THEM IS MORPHINE, THE OTHER ONE IS OXYCONTIN, IODINE ALSO. SHE IS ALLERGIC TO OTHER DRUGS, BUT SHE DOES NOT REMEMBER THE NAME RIGHT NOW. PHYSICAL EXAMINATION: The large abdomen. There is no pain. IMPRESSION: Left distal ureteral calculi on lower pole moiety, which appears to be complete. RECOMMENDATION: Cystoscopy, retrograde pyelograms, and placement of a stent. The patient has a positive urine culture with E. coli sensitive to all antibiotics on admission and even though she has been receiving IV antibiotics and is feeling better, I will be very cautious and treating the stone at the present time. She could have infected urine above that and we could cause a big problem trying to remove the stone. I have told her that as such and I told her that I will put up a stent and that in 2 to 3 weeks once the inflammation has gone down, that she can have the stone removed. MD GUERA VillaG/BARRY Valdez: 05/26/2019 08:12:06 /[id number]
--- NOTE | 2019-05-26 11:35 | Operative Report ---
DATE OF PROCEDURE: SURGEON: Feliciano Crocker MD PREOPERATIVE DIAGNOSIS: Left obstructed lower pole of the kidney by a lower ureter stone. 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 No stones on either side. 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 OPERATION PERFORMED: Cystoscopy, retrograde pyelograms, diagnostic rigid ureteroscopy with retrograde pyelogram and placement of left double-J on the lower pole moiety. ANESTHESIOLOGIST: Dr. Eaton. ANESTHESIA: General. FINDINGS: The patient had bladder neck polyps. 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 Small urethral caruncle. Atrophic vaginitis. 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 Upper pole normal with a complete duplication. PROCEDURE: With the patient under satisfactory general anesthesia, the patient was placed in the supine position at the operating table. Legs were placed on stirrups. Genitalia was prepped with pHisoHex solution and draped in the usual manner. Examination reveals atrophic vaginitis. A small urethral caruncle grade 2 cystocele with urethral hypermobility. Cystoscopy examination revealed bladder neck polyps. A 22-Sudanese cystourethroscope was used to inspect the bladder with a 12 and a 70 degrees angle lens. The Carlos bridge was used to inject contrast media retrograde up to the lower pole moiety. I immediately found was the patient has a UPJ. This accounts for the dilatation and the hydronephrosis on the CT scan, but the CT scan was done without contrast. Also, the lower pole thinning is probably due to chronic pyelonephritis and on ureteroscopy, ureteritis cystica was found. At this point, retrograde was done with a #8 cone-tip ureteral catheter. Injection was done on the lower pole moiety. I could not advance the guidewire to place a double J, so the rigid ureteral scope was introduced guiding us towards the UVJ, bypassing the UVJ and then going up to see the ureter, which was obviously filled with small cystic areas compatible with ureteritis cystica. At this point, a guidewire was introduced all the way up to the kidney. The guidewire was left in place. Instruments were removed and then a 6-Sudanese double-J was introduced all the way up to the kidney, coil in the kidney, coil in the bladder and then the guidewire was removed. Contrast media was injected retrograde again showing that the patient has a UPJ. At this point, the ureteroscope was introduced again into the bladder. Looking distal from the lower pole ureteral orifice, we found the upper pole ureteral orifice. I again used the ureteroscope and went up the ureter, finding the ureter to be completely normal. No evidence of any ureteritis cystica was found on the ureter going to the upper pole, which was again non hydronephrotic. At this point, the instruments were removed. Again, I observed the correct position of the double-J at the bladder. At this point, all instruments were removed. The patient was taken to the recovery room. RECOMMENDATION: The patient should have the double-J in for 7-10 days to make sure that she had proper drainage and the infection is cleared. She has ureteritis cystica throughout the ureter corresponding with chronic infections. The lower pole has a UPJ. The ureter is not distended. I doubt very much she has any refluxing down into this area. The upper pole ureter is completely normal. She at this point, my suggestion will also be that the patient and the understand exactly what she has. 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 I discussed this with the and given the x-ray picture, so we understand what is going on. This will be passed along to the patient so that she could take it to the [facility] urologist and that is maintained in the chart. The calcification was seen overlying the ureter on the CT scan without contrast is probably a phlebolith. Feliciano Crocker MD RRG/MODL /[id number] cc: Nick Dubon MD
[2019-05-26] MEDS ORDERED: POTASSIUM CHLORIDE 20 MEQ TAB CR PO ONE (12:00)
--- NOTE | 2019-05-26 13:35 | NUR ---
DISCUSSED IN [facility]ER ROUNDS PT ON TAMAFLU, CNR-PLACEMENT WITH NO STONES NOTED, ON FLUIDS AND IV ANCIEF, POSS DISCHARGE FOR TOMORROW
--- NOTE | 2019-05-26 14:04 | NUR ---
taken off O2 2L NC. SPO2 96% on room air. Denies sob.
--- NOTE | 2019-05-26 15:44 | NUR ---
EDUCATED ABOUT IMM, SIGNED, FILED IN CHART, WITH COPY LEFT WITH FAMILY AT BEDSIDE.
[2019-05-26] MEDS ORDERED: DEXAMETHASONE SOD PHOS INJ 4 MG/ML VIAL ONE (17:56)
[2019-05-26] MEDS ORDERED: PROPOFOL IV EMULSION 10 MG/ML 20 ML VIAL ONE (17:56)
[2019-05-26] MEDS ORDERED: MIDAZOLAM HCL 2 MG/2 ML VIAL ONE (17:56)
[2019-05-26] MEDS ORDERED: SEVOFLURANE INHAL SOLN 250 ML PEN BTL ONE (17:56)
[2019-05-26] MEDS ORDERED: LIDOCAINE HCL 2% LOCAL INJ 5 ML SDV VIAL INJ ONE (17:56)
--- NOTE | 2019-05-26 19:05 | NUR ---
Report given to oncoming nurse of patient's status. Resting in bed. No s/s of acute distress noted.
--- NOTE | 2019-05-26 21:05 | NUR ---
CALLED AND SPOKE TO DR GERBER NOTIFIED ABOUT PT'S ELEVATED BLOOD PRESSURE.N/O'S RECEIVED AND ENTERED.
[2019-05-26] MEDS ORDERED: CLONIDINE HCL 0.1 MG TAB PO PRN (21:15)
[2019-05-26] MEDS: AMLODIPINE BESYLATE 5 MG TAB PO SCH (21:19)
[2019-05-27] VITALS: BP 181/74
[2019-05-27] MEDS: SODIUM CHLORIDE 0.9% 1000ML 1,000 ML IV SCH ×3 (02:00→12:00)
[2019-05-27 04:00] VITALS: BP 134/71
[2019-05-27] MEDS: CEFAZOLIN SOD 1 GM/NS 50ML 50 ML IV SCH (05:14)
--- NOTE | 2019-05-27 06:59 | NUR ---
BEDSIDE SHIFT REPORT GIVEN TO ONCOMING NURSE.PT SITTING UP IN RECLINER CHAIR WITH NO S/S OF DISTRESS.
--- NOTE | 2019-05-27 07:00 | NUR ---
BEDSIDE SHIFT REPORT RECEIVED FROM THE [employer] RN. PT DENIES NEEDS AT THIS TIME.
[2019-05-27 08:00] VITALS: BP 174/71
[2019-05-27 09:00] VITALS: BP 155/68
[2019-05-27] MEDS: AMLODIPINE BESYLATE 5 MG TAB PO SCH (09:00)
[2019-05-27] MEDS: SIMETHICONE 80 MG CHEW PO SCH ×2 (09:32→13:43)
[2019-05-27] MEDS: OSELTAMIVIR PHOSPHATE 75 MG CAP PO SCH (09:32)
[2019-05-27] MEDS: LACTOBACILLUS ACIDOPHILUS CAPSULE PO SCH (09:32)
[2019-05-27 11:46] VITALS: BP 152/70
--- NOTE | 2019-05-27 12:00 | NUR ---
CM SPOKE TO PATIENT AT BEDSIDE REGARDING PLAN OF CARE AND DISCHARGE PLAN. PATIENT AWARE SHE IS BEING DISCHARGED TODAY. PER PATIENT AND PATIENT , PATIENT WITH [facility] AT HOME [address] MIL[place]SIDE OF [place], [place]. SHE ACQUIRED HER DME AFTER TWO KNEE REPLACEMENT SURGERIES.
--- NOTE | 2019-05-27 12:02 | NUR ---
DISCHARGE DISPOSITION: PATIENT DISCHARGING HOME WITH NO NEEDS PATIENT GOING HOME WITH IN PERSONAL CAR
--- NOTE | 2019-05-27 13:22 | Discharge Summary ---
PRIMARY CARE DOCTOR: Dr. Regina Lee. FINAL DIAGNOSIS: Acute left-sided pyelonephritis with hydronephrosis. SECONDARY DIAGNOSES: 1. Known duplicated system on the left side. 2. Previous history of nephrolithiasis. 3. Small B-cell lymphoma. 4. Hypertension. 5. Lupus anticoagulant disorder. 6. Psoriasis. CONSULTANTS: 1. Dr. Rolf Butcher, Infectious Disease. 2. Dr. Feliciano Crocker, Urology. PROCEDURE/STUDIES PERFORMED: 1. CT of the abdomen and pelvis. 2. Cysto with left-sided ureteral stent placement. HISTORY: Per [facility] HOSPITAL COURSE: The patient initially came in, thought to be having simple pansensitive E coli UTI and influenza B. The patient was treated appropriately with IV Rocephin and Tamiflu. Since the patient has completed five-day course Tamiflu, however, the patient subsequently was still having a fever, therefore a CT of the abdomen and pelvis was done, which showed a dual left collecting system with severe hydronephrosis and also perinephric fat stranding. Subsequently, the patient was evaluated by Urology and cysto was done with stent placement. Since then the patient has been afebrile. Therefore, at this time, the patient was deemed stable for discharge home. I will give her Cipro for another week. The patient knows that she needs to follow up with [facility] urologist to remove the stent in 7-10 days. Her platelet count remained stable at 60,000 at the time of discharge, which is her baseline. The patient was seen and examined today. It took 40 minutes total to discharge this patient including updating her at the bedside. CONDITION ON DISCHARGE: Improved. DISCHARGE MEDICATIONS: Please see medication reconciliation form. MD RAJESH Aparicio/BARRY /[id number] cc: [facility]
[2019-05-27] MEDS ORDERED: CIPRO500 MG PO (13:35)
[2019-05-27] MEDS ORDERED: ACIDOPHILUS1 EAC4 PO (13:37)
--- NOTE | 2019-05-27 13:55 | NUR ---
PT DISCHARGED SAFELY HOME WITH FAMILY. PT ESCORTED VIA WHEEL CHAIR TO THE FRONT ENTRANCE. IV REMOVED. TIP INTACT. NO BLEEDING NOTED. DRESSING APPLIED. PT DENIED FURTHER NEEDS.
== END 2019-05-27 14:17 | disposition home or self-care (01) | DRG 660 ==
LOC: ER 09:44 → ERHOLD 11:28 → MED/SURG2 13:16
PROVIDERS: ADMIT Internal Medicine; ATTEND Internal Medicine
PROC: 0T778DZ Dilation of Left Ureter with Intraluminal Device, Via Natural or Artificial Opening Endoscopic (ICD-10-PCS; principal; 2019-05-26 09:00)
DX: N13.6 Pyonephrosis (principal); E87.1 Hypo-osmolality and hyponatremia; C91.10 Chronic lymphocytic 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; D68.62 Lupus anticoagulant syndrome; J09.X2 Influenza due to identified novel influenza A virus with other respiratory manifestations; E86.0 Dehydration; D69.6 Thrombocytopenia, unspecified; Z88.8 Allergy status to other drugs, medicaments and biological substances; Z91.041 Radiographic dye allergy status; I10 Essential (primary) hypertension; Z87.442 Personal history of urinary calculi; L40.9 Psoriasis, unspecified; Z88.5 Allergy status to narcotic agent; B96.20 Unspecified Escherichia coli [E. coli] as the cause of diseases classified elsewhere; Q63.0 Accessory kidney; D41.4 Neoplasm of uncertain behavior of bladder; N36.41 Hypermobility of urethra; N81.10 Cystocele, unspecified; N95.2 Postmenopausal atrophic vaginitis; N28.86 Ureteritis cystica; D64.9 Anemia, unspecified
CPT/HCPCS: 36415; 71045; 74018; 74176; 74420; 80048; 80053; 80076; 81001; 82550; 82553; 83690; 83735; 84443; 84484; 85025; 85610; 85730; 87040; 87086; 87186; 87400; 93005; 97139; 99284; C2625; J0690; J0696; J1100; J2001; J2250; J2405; J2550; J2765; J3010; J7030; J7040; J7050